=== PATIENT | female | born 1970 | race Caucasian/White ===

== ENCOUNTER → 2019-04-11 15:14 | Outpatient (CLI) | payer OTHER, SELFPAY ==
--- NOTE | 2019-04-11 | DI.CT.S_ITS ---
PROCEDURE: CT SINUS SCREEN WO CON INDICATIONS: other chronic sinusitis TECHNIQUE: Noncontrast 3.0 mm axial images acquired from the frontal sinuses to the mid-sella, with coronal and sagittal reformats. For radiation dose reduction, the following was used: automated exposure control, adjustment of mA and/or kV according to patient size. COMPARISON: None. FINDINGS: Image quality: Excellent. Sinuses: Post surgical changes are noted. Mild left and minimal right maxillary. Mild scattered ethmoid mucosal thickening. Minimal sphenoid and frontal sinus mucosal thickening. Miscellaneous: Visualized intra-orbital contents are normal. No mabel bullosa or paradoxical turbinate curvature. Mild leftward nasal septal deviation. IMPRESSION: Post surgical changes are noted. Mild scattered mucosal thickening, most notable in the maxillary sinuses. Dictated by: Maddison Chandler M.D. on 04/11/2019 at 15:13 Approved by: Maddison Chandler M.D. on 04/11/2019 at 15:21
== END ==
PROVIDERS: Visit Provider Otolaryngology
DX: J32.8 Other chronic sinusitis (principal)
CPT/HCPCS: 70486

== ENCOUNTER → 2020-05-13 16:38 | Outpatient (CLI) | payer OTHER, SELFPAY ==
[2020-05-13 17:11] LABS: Add Manual Diff / Slide Review NO; Basophils Absolute Auto 0 /uL (0-100); Basophils Percent Auto 0.4 % (0-2); Eosinophils Absolute Auto 200 /uL (0-450); Eosinophils Percent Auto 3.2 % (2-4); Hematocrit 36.9 % (36-46); Hemoglobin 12.2 g/dL (12.0-16.0); Lymphocytes Absolute Auto 1000 /uL (1100-4500); Lymphocytes Percent Auto 15.8 % (25-40); Mean Corpuscular HGB Conc 33.1 % (30-36); Mean Corpuscular Hemoglobin 30.1 PG (26-34); Monocytes Absolute Auto 400 /uL (0-900); Monocytes Percent Auto 6.4 % (3-14); Neutrophils Absolute Auto 4800 /uL (1500-7000); Neutrophils Percent Auto 74.2 % (50-75); Platelet Count 236 X10^3/uL (150-400); Red Blood Cell Count 4.05 X10^6/uL (4.0-5.2); Red Cell Distribution Width 14.5 % (11.6-14.8); White Blood Cell Count 6.4 X10^3/uL (4.5-11.0)
[2020-05-13 17:26] LABS: Erythrocyte Sedimentation Rate 9 MM/HR (0-20)
[2020-05-13 17:28] LABS: Prothrombin Time 11.9 SECONDS (10.1-12.7)
[2020-05-13 17:37] LABS: BUN Creatinine Ratio 28.1 (6-22); Blood Urea Nitrogen 18 mg/dL (7-17); Calcium 8.5 mg/dL (8.4-10.2); Carbon Dioxide 29 mmol/L (22-32); Chloride 105 mmol/L (98-107); Estimated Glomerular Filt Rate > 60.0 mL/min (>60); Glucose 96 mg/dL (70-100); HEMOLYSIS < 15 (0-50); Potassium 3.9 mmol/L (3.4-5.1); Sodium 137 mmol/L (137-145)
[2020-05-13 17:46] LABS: C-Reactive Protein Quant < 0.5 mg/dL (<1.0)
== END ==
PROVIDERS: PCP Nurse Practitioner Family; Referring Provider Nurse Practitioner Family; Visit Provider Nurse Practitioner Family
DX: R23.3 Spontaneous ecchymoses (principal)
CPT/HCPCS: 36415; 80048; 85025; 85610; 85651; 86140

== ENCOUNTER 2020-09-02 14:15 | Outpatient (RCR) | payer OTHER, SELFPAY ==
--- NOTE | 2020-08-19 16:00 | PT.OIE ---
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, [place], [address] Email: SANDRA Fay Attending Provider Non-Staff Referring Provider Specialty: Medical Address: [address], [address], [place], [address] Email: Physical Therapy Initial Evaluation PT-OP-A Visit Information Start: 08/19/20 07:40 Freq: Status: Active Protocol: Document 08/19/20 13:30 AMB (Rec: 08/19/20 14:20 AMB [id number]) Out-Patient Physical Therapy Visit Information Visit Information Visit Type Initial Evaluation PT-OP-B Current Condition Start: 08/19/20 07:40 Freq: Status: Active Protocol: Document 08/19/20 13:35 AMB (Rec: 08/19/20 14:06 AMB [id number]) Current Condition History of Current Condition Onset Date 2 years ago Current Complaints Radicular sx (R) History of Current Condition Low back pain for the past 2 years, sitting increases pain. Known disc herniation. Trying to avoid surgery. Sleeping flat on back. Gardening increases pain. Deep lunge, hamstring stretches help. Sx worst in R glutes and lateral calf. Driving is not painful, but doesn't drive a lot. Works from home currently and has a standing desk. Treatment Goals Patient/Caregiver Goals Be able to sit/ gardening without so much pain. Get some different exercises to help. Prior Functional Status Baseline Function- ADL's Independent Baseline Function- Mobility Independent Personal Factors Other Personal Factors That May Effect known herniated disc Therapy/Recovery PT-OP-C Subjective Start: 08/19/20 07:40 Freq: Status: Active Protocol: Document 08/19/20 13:30 AMB (Rec: 08/20/20 15:27 AMB [email or web address]) Patient Questionnaires Lower Extremity Functional Scale LEFS Score 72 LEFS Impairment 1 to 19% Impaired (Score 63-79 ) Oswestry Low Back Index Oswestry Score 14 Oswestry Impairment 1 to 19% Impaired (Score 1-19) OP-PT Pain Assessment Comments Pain Comments 3-4/10 pain at R gluteals, 3/ 10 at lateral leg PT-OP-F Manual Assessment Start: 08/19/20 07:40 Freq: Status: Active Protocol: Document 08/19/20 13:30 AMB (Rec: 08/20/20 15:27 AMB [email or web address]) Manual Assessments Other Manual Assessments Other Manual Assessments Tenderness at R glute med, tenderness with PAs at L4L5 L5S1 PT-OP-J Posture/Palpation/Skin Start: 08/19/20 07:40 Freq: Status: Active Protocol: Document 08/19/20 13:30 AMB (Rec: 08/20/20 15:27 AMB [email or web address]) Posture Evaluation Comments Posture Comments Flat lumbar spine, L ASIS high , LLE appears long in supine, prefers posterior pelvic tilt in sitting PT-OP-K Range of Motion Start: 08/19/20 07:40 Freq: Status: Active Protocol: Document 08/19/20 13:30 AMB (Rec: 08/20/20 15:27 AMB [email or web address]) Lumbar Spine Range of Motion Lumbar Spine Active Degrees Comments all WNL PT-OP-L Special Tests Start: 08/19/20 07:40 Freq: Status: Active Protocol: Document 08/19/20 13:30 AMB (Rec: 08/20/20 15:27 AMB [email or web address]) Special Tests Neural Special Tests- Lower Body Sciatic Nerve Tension Test Results - PT-OP-M Strength Start: 08/19/20 07:40 Freq: Status: Active Protocol: Document 08/19/20 13:30 AMB (Rec: 08/20/20 15:27 AMB [email or web address]) Hip Strength Hip Manual Muscle Testing Right Flexion (L2) 5 Normal Extension (S1) 4+ Good+ Abduction 5 Normal Left Flexion (L2) 5 Normal Extension (S1) 4+ Good+ Abduction 5 Normal Knee Strength Knee Manual Muscle Testing Right Flexion (S2) 4+ Good+ Extension (L3) 5 Normal Left Flexion (S2) 5 Normal Extension (L3) 5 Normal Ankle/Foot Strength Ankle and Foot Manual Muscle Testing Right Dorsiflexion (L4) 5 Normal Plantarflexion (S1) 5 Normal Left Dorsiflexion (L4) 5 Normal Plantarflexion (S1) 5 Normal PT-OP-T Assessment and Plan Start: 08/19/20 07:40 Freq: Status: Active Protocol: Document 08/19/20 13:30 AMB (Rec: 08/20/20 15:59 AMB [email or web address]) Physical Therapy Assessment Rehab Potential Rehabilitation Potential Good Evaluation Complexity Number of Personal Factors/Comorbidities 0 Number of Body Systems Impaired 3 Clinical Presentation at Evaluation Stable Impairments Impairments Activity Tolerance,Functional Activities,Pain Goals Three Impairment Pain Short Term Goal (STG) Saba will garden with 3/10 pain or less. STG Duration 4 weeks Two Impairment HEP Short Term Goal (STG) Saba will be indepedent and consistent with a HEP for her core and hip stabilization and stretching. STG Duration 4 weeks One Impairment Sitting Short Term Goal (STG) Saba will sit for dinner for 20 minutes with 3/10 pain or less. 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 LTG Duration 8 weeks Assessment Summary Assessment Saba attends physical therapy with known lumbar disc herniation, but possible hip dysfunction as well. Her biggest complaint is sitting, the pain can last an hour after she has been sitting and is painful while she is sitting in R gluteals and R lateral calf. Squeezing type pain. Deep hip flexor and hamstring stretching have been helpful. Pt was tight in hip flexor and did have pelvic postural changes. Would likely benefit from physical therapy to treat hip/lumbar/ pelvic dysfunction with focus on increasing tolerance in seated. Physical Therapy Plan Frequency and Duration Frequency of Treatment 2x/Week Duration of Treatment 8 weeks Plan of Care Start Date 08/19/20 Plan of Care End Date 10/14/20 Therapeutic Interventions Therapeutic Interventions Home Exercise Program,Manual Therapy,Neuromuscular Re- education,Self-Care/Home Management,Soft Tissue Mobilization,Therapeutic Activities,Therapeutic Exercises Modalities Cold Pack/Ice Massage,Electric Stimulation,Hot Packs, Traction- Mechanical Next Visit Focus/Plan Next Note Type Treatment Note Next Visit Plan Begin instruction in HEP: pelvic alignment, hip flexor stretching, seated posture
--- NOTE | 2020-08-19 16:00 | PT.OPPOC ---
Physical, Occupational & Speech Therapy At [facility] Current Diagnoses Pain in right hip (08/19/20) Spinal stenosis, lumbar region without neurogenic claudication (08/19/20) Radiculopathy, lumbar region (08/19/20) Visit Care Team Role Provider Type SANDRA Boyce Family Provider [employer] Supply Primary Care Provider Specialty: Family Practice Address: [address] [place], [address] Email: SANDRA Fay Attending Provider Non-Staff Referring Provider Specialty: Medical Address: [address], [place] [address], [place], [address] Email: Plan Of Care PT-OP-T Assessment and Plan Start: 08/19/20 07:40 Freq: Status: Active Protocol: Document 08/19/20 13:30 AMB (Rec: 08/20/20 15:59 AMB [email or web address]) Physical Therapy Assessment Rehab Potential Rehabilitation Potential Good Evaluation Complexity Number of Personal Factors/Comorbidities 0 Number of Body Systems Impaired 3 Clinical Presentation at Evaluation Stable Impairments Impairments Activity Tolerance,Functional Activities,Pain Goals Three Impairment Pain Short Term Goal (STG) Saba will garden with 3/10 pain or less. STG Duration 4 weeks Two Impairment HEP Short Term Goal (STG) Saba will be indepedent and consistent with a HEP for her core and hip stabilization and stretching. STG Duration 4 weeks One Impairment Sitting Short Term Goal (STG) Saba will sit for dinner for 20 minutes with 3/10 pain or less. 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 LTG Duration 8 weeks Assessment Summary Assessment Saba attends physical therapy with known lumbar disc herniation, but possible hip dysfunction as well. Her biggest complaint is sitting, the pain can last an hour after she has been sitting and is painful while she is sitting in R gluteals and R lateral calf. Squeezing type pain. Deep hip flexor and hamstring stretching have been helpful. Pt was tight in hip flexor and did have pelvic postural changes. Would likely benefit from physical therapy to treat hip/lumbar/ pelvic dysfunction with focus on increasing tolerance in seated. Physical Therapy Plan Frequency and Duration Frequency of Treatment 2x/Week Duration of Treatment 8 weeks Plan of Care Start Date 08/19/20 Plan of Care End Date 10/14/20 Therapeutic Interventions Therapeutic Interventions Home Exercise Program,Manual Therapy,Neuromuscular Re- education,Self-Care/Home Management,Soft Tissue Mobilization,Therapeutic Activities,Therapeutic Exercises Modalities Cold Pack/Ice Massage,Electric Stimulation,Hot Packs, Traction- Mechanical Next Visit Focus/Plan Next Note Type Treatment Note Next Visit Plan Begin instruction in HEP: pelvic alignment, hip flexor stretching, seated posture Plan of Care Dates Plan of Care Start Date 08/19/20 Plan of Care End Date 10/14/20 Electronically Signed by: Sara Alegre, PT 08/20/20 1600 Please Sign and Return: I have reviewed this Plan of Care and certify that the skilled therapy services above are required to meet the patient?s needs. Physician Signature Date Printed Name and Credentials Clinical Instructor Signature Printed Name and Credentials
--- NOTE | 2020-08-22 16:00 | PT.OTN ---
Current Diagnoses Pain in right hip (08/22/20) Spinal stenosis, lumbar region without neurogenic claudication (08/22/20) Radiculopathy, lumbar region (08/22/20) Physical Therapy Treatment Note PT-OP-A Visit Information Start: 08/19/20 07:40 Freq: Status: Active Protocol: Document 08/22/20 07:30 AMB (Rec: 08/22/20 15:59 AMB [email or web address]) Out-Patient Physical Therapy Visit Information Visit Information Visit Type Treatment Note Visit Start Time 07:30 Visit Stop Time 08:15 Total Visit Minutes 45 Visit Number 2 PT-OP-B Current Condition Start: 08/19/20 07:40 Freq: Status: Active Protocol: Document 08/19/20 13:35 AMB (Rec: 08/19/20 14:06 AMB [id number]) Current Condition History of Current Condition Onset Date 2 years ago Current Complaints Radicular sx (R) History of Current Condition Low back pain for the past 2 years, sitting increases pain. Known disc herniation. Trying to avoid surgery. Sleeping flat on back. Gardening increases pain. Deep lunge, hamstring stretches help. Sx worst in R glutes and lateral calf. Driving is not painful, but doesn't drive a lot. Works from home currently and has a standing desk. Treatment Goals Patient/Caregiver Goals Be able to sit/ gardening without so much pain. Get some different exercises to help. Prior Functional Status Baseline Function- ADL's Independent Baseline Function- Mobility Independent Personal Factors Other Personal Factors That May Effect known herniated disc Therapy/Recovery PT-OP-C Subjective Start: 08/19/20 07:40 Freq: Status: Active Protocol: Document 08/22/20 07:30 AMB (Rec: 08/22/20 16:00 AMB [email or web address]) OP-PT Subjective Patient Comments Patient Comments Pt did not have increased pain after eval PT-OP-F Manual Assessment Start: 08/19/20 07:40 Freq: Status: Active Protocol: Document 08/19/20 13:30 AMB (Rec: 08/20/20 15:27 AMB [email or web address]) Manual Assessments Other Manual Assessments Other Manual Assessments Tenderness at R glute med, tenderness with PAs at L4L5 L5S1 PT-OP-J Posture/Palpation/Skin Start: 08/19/20 07:40 Freq: Status: Active Protocol: Document 08/19/20 13:30 AMB (Rec: 08/20/20 15:27 AMB [email or web address]) Posture Evaluation Comments Posture Comments Flat lumbar spine, L ASIS high , LLE appears long in supine, prefers posterior pelvic tilt in sitting PT-OP-K Range of Motion Start: 08/19/20 07:40 Freq: Status: Active Protocol: Document 08/19/20 13:30 AMB (Rec: 08/20/20 15:27 AMB [email or web address]) Lumbar Spine Range of Motion Lumbar Spine Active Degrees Comments all WNL PT-OP-L Special Tests Start: 08/19/20 07:40 Freq: Status: Active Protocol: Document 08/19/20 13:30 AMB (Rec: 08/20/20 15:27 AMB [email or web address]) Special Tests Neural Special Tests- Lower Body Sciatic Nerve Tension Test Results - PT-OP-M Strength Start: 08/19/20 07:40 Freq: Status: Active Protocol: Document 08/19/20 13:30 AMB (Rec: 08/20/20 15:27 AMB [email or web address]) Hip Strength Hip Manual Muscle Testing Right Flexion (L2) 5 Normal Extension (S1) 4+ Good+ Abduction 5 Normal Left Flexion (L2) 5 Normal Extension (S1) 4+ Good+ Abduction 5 Normal Knee Strength Knee Manual Muscle Testing Right Flexion (S2) 4+ Good+ Extension (L3) 5 Normal Left Flexion (S2) 5 Normal Extension (L3) 5 Normal Ankle/Foot Strength Ankle and Foot Manual Muscle Testing Right Dorsiflexion (L4) 5 Normal Plantarflexion (S1) 5 Normal Left Dorsiflexion (L4) 5 Normal Plantarflexion (S1) 5 Normal PT-OP-Q Treatments Start: 08/19/20 07:40 Freq: Status: Active Protocol: Document 08/22/20 07:30 AMB (Rec: 08/22/20 15:59 AMB [email or web address]) Gym Equipment Shuttle Recovery Bilateral Squats Resistance 50 Shuttle Recovery Platform Stable Reps/Time warm up 5 min Therapeutic Exercises Supine Exercises 2 Supine Exercise Name hip flexor stretch Reps/Minutes 30x2 1 Supine Exercise Name supine hip ER Resistance #2 t band Sidelying Exercises 1 Sidelying Exercise Name clamshell Comments painful Other Exercises 1 Other Exercise Name quadruped hip ER Comments painful Manual Therapy Treatment Soft Tissue Mobilization 1 Body Location glut med (R) Mobilization Type Myofascial Release,Sustained Pressure Intensity/Depth Moderate Body Position Sidelying Manual Techniques 1 Type long axis distraction then MET for long L LE Body Position Hooklying PT-OP-T Assessment and Plan Start: 08/19/20 07:40 Freq: Status: Active Protocol: Document 08/22/20 07:30 AMB (Rec: 08/22/20 15:59 AMB [email or web address]) Physical Therapy Assessment Assessment Summary Assessment Saba had increased sx with light myofascial release to the R glute med. Pain with clamshells and fire hydrant, but no pain with supine hip ER . Weakness/pain into hip ER. Physical Therapy Plan Next Visit Focus/Plan Next Note Type Treatment Note Next Visit Plan Begin instruction in HEP: pelvic alignment, hip flexor stretching, seated posture
--- NOTE | 2020-08-26 15:57 | PT.OTN ---
Current Diagnoses Pain in right hip (08/26/20) Spinal stenosis, lumbar region without neurogenic claudication (08/26/20) Radiculopathy, lumbar region (08/26/20) Physical Therapy Treatment Note PT-OP-A Visit Information Start: 08/19/20 07:40 Freq: Status: Active Protocol: Document 08/26/20 12:45 AMB (Rec: 08/27/20 15:57 AMB [email or web address]) Out-Patient Physical Therapy Visit Information Visit Information Visit Type Treatment Note Visit Start Time 12:45 Visit Stop Time 13:30 Total Visit Minutes 45 Visit Number 3 PT-OP-B Current Condition Start: 08/19/20 07:40 Freq: Status: Active Protocol: Document 08/19/20 13:35 AMB (Rec: 08/19/20 14:06 AMB [id number]) Current Condition History of Current Condition Onset Date 2 years ago Current Complaints Radicular sx (R) History of Current Condition Low back pain for the past 2 years, sitting increases pain. Known disc herniation. Trying to avoid surgery. Sleeping flat on back. Gardening increases pain. Deep lunge, hamstring stretches help. Sx worst in R glutes and lateral calf. Driving is not painful, but doesn't drive a lot. Works from home currently and has a standing desk. Treatment Goals Patient/Caregiver Goals Be able to sit/ gardening without so much pain. Get some different exercises to help. Prior Functional Status Baseline Function- ADL's Independent Baseline Function- Mobility Independent Personal Factors Other Personal Factors That May Effect known herniated disc Therapy/Recovery PT-OP-C Subjective Start: 08/19/20 07:40 Freq: Status: Active Protocol: Document 08/26/20 12:45 AMB (Rec: 08/27/20 15:57 AMB [email or web address]) OP-PT Subjective Patient Comments Patient Comments Pt feels about the same. Did ok doing yardwork which she was surprised it went so well. PT-OP-F Manual Assessment Start: 08/19/20 07:40 Freq: Status: Active Protocol: Document 08/19/20 13:30 AMB (Rec: 08/20/20 15:27 AMB [email or web address]) Manual Assessments Other Manual Assessments Other Manual Assessments Tenderness at R glute med, tenderness with PAs at L4L5 L5S1 PT-OP-J Posture/Palpation/Skin Start: 08/19/20 07:40 Freq: Status: Active Protocol: Document 08/19/20 13:30 AMB (Rec: 08/20/20 15:27 AMB [email or web address]) Posture Evaluation Comments Posture Comments Flat lumbar spine, L ASIS high , LLE appears long in supine, prefers posterior pelvic tilt in sitting PT-OP-K Range of Motion Start: 08/19/20 07:40 Freq: Status: Active Protocol: Document 08/19/20 13:30 AMB (Rec: 08/20/20 15:27 AMB [email or web address]) Lumbar Spine Range of Motion Lumbar Spine Active Degrees Comments all WNL PT-OP-L Special Tests Start: 08/19/20 07:40 Freq: Status: Active Protocol: Document 08/19/20 13:30 AMB (Rec: 08/20/20 15:27 AMB [email or web address]) Special Tests Neural Special Tests- Lower Body Sciatic Nerve Tension Test Results - PT-OP-M Strength Start: 08/19/20 07:40 Freq: Status: Active Protocol: Document 08/19/20 13:30 AMB (Rec: 08/20/20 15:27 AMB [email or web address]) Hip Strength Hip Manual Muscle Testing Right Flexion (L2) 5 Normal Extension (S1) 4+ Good+ Abduction 5 Normal Left Flexion (L2) 5 Normal Extension (S1) 4+ Good+ Abduction 5 Normal Knee Strength Knee Manual Muscle Testing Right Flexion (S2) 4+ Good+ Extension (L3) 5 Normal Left Flexion (S2) 5 Normal Extension (L3) 5 Normal Ankle/Foot Strength Ankle and Foot Manual Muscle Testing Right Dorsiflexion (L4) 5 Normal Plantarflexion (S1) 5 Normal Left Dorsiflexion (L4) 5 Normal Plantarflexion (S1) 5 Normal PT-OP-Q Treatments Start: 08/19/20 07:40 Freq: Status: Active Protocol: Document 08/26/20 12:45 AMB (Rec: 08/27/20 15:57 AMB [email or web address]) Therapeutic Exercises Supine Exercises 2 Supine Exercise Name hip flexor stretch Reps/Minutes 30x2 1 Supine Exercise Name supine hip ER Resistance #2 t band Reps/Minutes 2x10 Comments easy Prone Exercises 1 Prone Exercise Name prone press up Reps/Minutes 10 Comments forearms Sidelying Exercises 2 Sidelying Exercise Name hip abd- SLR Comments painful 1 Sidelying Exercise Name clamshell Side right Reps/Minutes 10 Comments less painful but still makes hip burn Sitting Exercises 1 Sitting Exercise Name australian ball 65cm Comments pelvic circles, march with TA Standing Exercises 1 Standing Exercise Name hip abd #2 t band Reps/Minutes 10 Manual Therapy Treatment Manual Techniques 1 Type long axis distraction then MET for long L LE Body Position Hooklying PT-OP-T Assessment and Plan Start: 08/19/20 07:40 Freq: Status: Active Protocol: Document 08/26/20 12:45 AMB (Rec: 08/27/20 15:57 AMB [email or web address]) Physical Therapy Assessment Assessment Summary Assessment Saba had less pelvic asymmetry today, tolerated australian ball exercises well. Will continue to work on seated tolerance. Clamshells and hip abd increase sx significantly. Physical Therapy Plan Next Visit Focus/Plan Next Note Type Treatment Note Next Visit Plan Continue with seated exercises on australian ball as tolerated, follow up on HEP of standing t band hip abd.
--- NOTE | 2020-08-29 16:21 | PT.OTN ---
Current Diagnoses Pain in right hip (08/29/20) Spinal stenosis, lumbar region without neurogenic claudication (08/29/20) Radiculopathy, lumbar region (08/29/20) Physical Therapy Treatment Note PT-OP-A Visit Information Start: 08/19/20 07:40 Freq: Status: Active Protocol: Document 08/29/20 07:30 AMB (Rec: 08/29/20 11:01 AMB [email or web address]) Out-Patient Physical Therapy Visit Information Visit Information Visit Type Treatment Note Visit Start Time 07:30 Visit Stop Time 08:15 Total Visit Minutes 45 Visit Number 4 PT-OP-B Current Condition Start: 08/19/20 07:40 Freq: Status: Active Protocol: Document 08/19/20 13:35 AMB (Rec: 08/19/20 14:06 AMB [id number]) Current Condition History of Current Condition Onset Date 2 years ago Current Complaints Radicular sx (R) History of Current Condition Low back pain for the past 2 years, sitting increases pain. Known disc herniation. Trying to avoid surgery. Sleeping flat on back. Gardening increases pain. Deep lunge, hamstring stretches help. Sx worst in R glutes and lateral calf. Driving is not painful, but doesn't drive a lot. Works from home currently and has a standing desk. Treatment Goals Patient/Caregiver Goals Be able to sit/ gardening without so much pain. Get some different exercises to help. Prior Functional Status Baseline Function- ADL's Independent Baseline Function- Mobility Independent Personal Factors Other Personal Factors That May Effect known herniated disc Therapy/Recovery PT-OP-C Subjective Start: 08/19/20 07:40 Freq: Status: Active Protocol: Document 08/29/20 07:30 AMB (Rec: 08/29/20 11:01 AMB [email or web address]) OP-PT Subjective Patient Comments Patient Comments Pt had a more painful day, did wear wedges to work, wondering if that increased pain. PT-OP-F Manual Assessment Start: 08/19/20 07:40 Freq: Status: Active Protocol: Document 08/19/20 13:30 AMB (Rec: 08/20/20 15:27 AMB [email or web address]) Manual Assessments Other Manual Assessments Other Manual Assessments Tenderness at R glute med, tenderness with PAs at L4L5 L5S1 PT-OP-J Posture/Palpation/Skin Start: 08/19/20 07:40 Freq: Status: Active Protocol: Document 08/19/20 13:30 AMB (Rec: 08/20/20 15:27 AMB [email or web address]) Posture Evaluation Comments Posture Comments Flat lumbar spine, L ASIS high , LLE appears long in supine, prefers posterior pelvic tilt in sitting PT-OP-K Range of Motion Start: 08/19/20 07:40 Freq: Status: Active Protocol: Document 08/19/20 13:30 AMB (Rec: 08/20/20 15:27 AMB [email or web address]) Lumbar Spine Range of Motion Lumbar Spine Active Degrees Comments all WNL PT-OP-L Special Tests Start: 08/19/20 07:40 Freq: Status: Active Protocol: Document 08/19/20 13:30 AMB (Rec: 08/20/20 15:27 AMB [email or web address]) Special Tests Neural Special Tests- Lower Body Sciatic Nerve Tension Test Results - PT-OP-M Strength Start: 08/19/20 07:40 Freq: Status: Active Protocol: Document 08/19/20 13:30 AMB (Rec: 08/20/20 15:27 AMB [email or web address]) Hip Strength Hip Manual Muscle Testing Right Flexion (L2) 5 Normal Extension (S1) 4+ Good+ Abduction 5 Normal Left Flexion (L2) 5 Normal Extension (S1) 4+ Good+ Abduction 5 Normal Knee Strength Knee Manual Muscle Testing Right Flexion (S2) 4+ Good+ Extension (L3) 5 Normal Left Flexion (S2) 5 Normal Extension (L3) 5 Normal Ankle/Foot Strength Ankle and Foot Manual Muscle Testing Right Dorsiflexion (L4) 5 Normal Plantarflexion (S1) 5 Normal Left Dorsiflexion (L4) 5 Normal Plantarflexion (S1) 5 Normal PT-OP-Q Treatments Start: 08/19/20 07:40 Freq: Status: Active Protocol: Document 08/29/20 16:19 AMB (Rec: 08/29/20 16:21 AMB [email or web address]) Therapeutic Exercises Supine Exercises 3 Supine Exercise Name hamstring contract relax Reps/Minutes 10 2 Supine Exercise Name hip flexor stretch Reps/Minutes 30x2 1 Supine Exercise Name supine hip ER Resistance #2 t band Reps/Minutes 2x10 Comments easy Standing Exercises 1 Standing Exercise Name hip abd #2 t band Reps/Minutes 10 Manual Therapy Treatment Manual Techniques 1 Type long axis distraction then MET for long L LE Body Position Hooklying PT-OP-T Assessment and Plan Start: 08/19/20 07:40 Freq: Status: Active Protocol: Document 08/29/20 16:19 AMB (Rec: 08/29/20 16:21 AMB [email or web address]) Physical Therapy Assessment Assessment Summary Assessment Pt's L LE measured longer in supine by .5cm, so gave small cork insert for R LE. Hip strengthening continues to exacerbate her pain. Physical Therapy Plan Next Visit Focus/Plan Next Note Type Treatment Note Next Visit Plan Discuss continued PT vs returning to surgeon
--- NOTE | 2020-09-02 16:00 | PT.OTN ---
Current Diagnoses Pain in right hip (09/02/20) Spinal stenosis, lumbar region without neurogenic claudication (09/02/20) Radiculopathy, lumbar region (09/02/20) Physical Therapy Treatment Note PT-OP-A Visit Information Start: 08/19/20 07:40 Freq: Status: Active Protocol: Document 09/02/20 14:15 AMB (Rec: 09/02/20 16:00 AMB [email or web address]) Out-Patient Physical Therapy Visit Information Visit Information Visit Type Treatment Note Visit Start Time 14:15 Visit Stop Time 15:00 Total Visit Minutes 45 Visit Number 5 PT-OP-B Current Condition Start: 08/19/20 07:40 Freq: Status: Active Protocol: Document 08/19/20 13:35 AMB (Rec: 08/19/20 14:06 AMB [id number]) Current Condition History of Current Condition Onset Date 2 years ago Current Complaints Radicular sx (R) History of Current Condition Low back pain for the past 2 years, sitting increases pain. Known disc herniation. Trying to avoid surgery. Sleeping flat on back. Gardening increases pain. Deep lunge, hamstring stretches help. Sx worst in R glutes and lateral calf. Driving is not painful, but doesn't drive a lot. Works from home currently and has a standing desk. Treatment Goals Patient/Caregiver Goals Be able to sit/ gardening without so much pain. Get some different exercises to help. Prior Functional Status Baseline Function- ADL's Independent Baseline Function- Mobility Independent Personal Factors Other Personal Factors That May Effect known herniated disc Therapy/Recovery PT-OP-C Subjective Start: 08/19/20 07:40 Freq: Status: Active Protocol: Document 09/02/20 14:15 AMB (Rec: 09/02/20 16:00 AMB [email or web address]) OP-PT Subjective Patient Comments Patient Comments Pt is having a good day today, so not sure if it's from the heel lift or just because her pain is variable. PT-OP-F Manual Assessment Start: 08/19/20 07:40 Freq: Status: Active Protocol: Document 08/19/20 13:30 AMB (Rec: 08/20/20 15:27 AMB [email or web address]) Manual Assessments Other Manual Assessments Other Manual Assessments Tenderness at R glute med, tenderness with PAs at L4L5 L5S1 PT-OP-J Posture/Palpation/Skin Start: 08/19/20 07:40 Freq: Status: Active Protocol: Document 08/19/20 13:30 AMB (Rec: 08/20/20 15:27 AMB [email or web address]) Posture Evaluation Comments Posture Comments Flat lumbar spine, L ASIS high , LLE appears long in supine, prefers posterior pelvic tilt in sitting PT-OP-K Range of Motion Start: 08/19/20 07:40 Freq: Status: Active Protocol: Document 08/19/20 13:30 AMB (Rec: 08/20/20 15:27 AMB [email or web address]) Lumbar Spine Range of Motion Lumbar Spine Active Degrees Comments all WNL PT-OP-L Special Tests Start: 08/19/20 07:40 Freq: Status: Active Protocol: Document 08/19/20 13:30 AMB (Rec: 08/20/20 15:27 AMB [email or web address]) Special Tests Neural Special Tests- Lower Body Sciatic Nerve Tension Test Results - PT-OP-M Strength Start: 08/19/20 07:40 Freq: Status: Active Protocol: Document 08/19/20 13:30 AMB (Rec: 08/20/20 15:27 AMB [email or web address]) Hip Strength Hip Manual Muscle Testing Right Flexion (L2) 5 Normal Extension (S1) 4+ Good+ Abduction 5 Normal Left Flexion (L2) 5 Normal Extension (S1) 4+ Good+ Abduction 5 Normal Knee Strength Knee Manual Muscle Testing Right Flexion (S2) 4+ Good+ Extension (L3) 5 Normal Left Flexion (S2) 5 Normal Extension (L3) 5 Normal Ankle/Foot Strength Ankle and Foot Manual Muscle Testing Right Dorsiflexion (L4) 5 Normal Plantarflexion (S1) 5 Normal Left Dorsiflexion (L4) 5 Normal Plantarflexion (S1) 5 Normal PT-OP-Q Treatments Start: 08/19/20 07:40 Freq: Status: Active Protocol: Document 09/02/20 14:15 AMB (Rec: 09/02/20 16:00 AMB [email or web address]) Therapeutic Exercises Supine Exercises 3 Supine Exercise Name hamstring contract relax Reps/Minutes 10 2 Supine Exercise Name hip flexor stretch Reps/Minutes 30x2 1 Supine Exercise Name supine hip ER Resistance #2 t band Reps/Minutes 2x10 Comments easy Sidelying Exercises 2 Sidelying Exercise Name hip abd- SLR Comments painful 1 Sidelying Exercise Name clamshell Side right Reps/Minutes 10 Standing Exercises 2 Standing Exercise Name squat form Comments posterior pelvic tilt for more lengthening Manual Therapy Treatment Soft Tissue Mobilization 1 Body Location glut med (R) Mobilization Type Myofascial Release,Sustained Pressure Intensity/Depth Moderate Body Position Sidelying Comments added in iliopsoas release Manual Techniques 1 Type long axis distraction then MET for long L LE Body Position Hooklying PT-OP-T Assessment and Plan Start: 08/19/20 07:40 Freq: Status: Active Protocol: Document 09/02/20 14:15 AMB (Rec: 09/02/20 16:00 AMB [email or web address]) Physical Therapy Assessment Assessment Summary Assessment Gave more cork today and pelvis appears level in standing afterward. Good tolerance to stretching today, clamshell increases pain but less so. Physical Therapy Plan Next Visit Focus/Plan Next Visit Plan REassess after 1.5 weeks to check if PT is making positive impact
--- NOTE | 2020-11-28 15:14 | PT.OPDS ---
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, [place], [address] Email: SANDRA Fay Attending Provider Non-Staff Referring Provider Specialty: Medical Address: [address], [place], [address] Email: Visit Number Visit Number 5 Discharge Summary PT-OP-B Current Condition Start: 08/19/20 07:40 Freq: Status: Active Protocol: Document 08/19/20 13:35 AMB (Rec: 08/19/20 14:06 AMB [id number]) Current Condition History of Current Condition Onset Date 2 years ago Current Complaints Radicular sx (R) History of Current Condition Low back pain for the past 2 years, sitting increases pain. Known disc herniation. Trying to avoid surgery. Sleeping flat on back. Gardening increases pain. Deep lunge, hamstring stretches help. Sx worst in R glutes and lateral calf. Driving is not painful, but doesn't drive a lot. Works from home currently and has a standing desk. Treatment Goals Patient/Caregiver Goals Be able to sit/ gardening without so much pain. Get some different exercises to help. Prior Functional Status Baseline Function- ADL's Independent Baseline Function- Mobility Independent Personal Factors Other Personal Factors That May Effect known herniated disc Therapy/Recovery PT-OP-C Subjective Start: 08/19/20 07:40 Freq: Status: Active Protocol: Document 09/02/20 14:15 AMB (Rec: 09/02/20 16:00 AMB [email or web address]) OP-PT Subjective Patient Comments Patient Comments Pt is having a good day today, so not sure if it's from the heel lift or just because her pain is variable. PT-OP-F Manual Assessment Start: 08/19/20 07:40 Freq: Status: Active Protocol: Document 08/19/20 13:30 AMB (Rec: 08/20/20 15:27 AMB [email or web address]) Manual Assessments Other Manual Assessments Other Manual Assessments Tenderness at R glute med, tenderness with PAs at L4L5 L5S1 PT-OP-J Posture/Palpation/Skin Start: 08/19/20 07:40 Freq: Status: Active Protocol: Document 08/19/20 13:30 AMB (Rec: 08/20/20 15:27 AMB [email or web address]) Posture Evaluation Comments Posture Comments Flat lumbar spine, L ASIS high , LLE appears long in supine, prefers posterior pelvic tilt in sitting PT-OP-K Range of Motion Start: 08/19/20 07:40 Freq: Status: Active Protocol: Document 08/19/20 13:30 AMB (Rec: 08/20/20 15:27 AMB [email or web address]) Lumbar Spine Range of Motion Lumbar Spine Active Degrees Comments all WNL PT-OP-L Special Tests Start: 08/19/20 07:40 Freq: Status: Active Protocol: Document 08/19/20 13:30 AMB (Rec: 08/20/20 15:27 AMB [email or web address]) Special Tests Neural Special Tests- Lower Body Sciatic Nerve Tension Test Results - PT-OP-M Strength Start: 08/19/20 07:40 Freq: Status: Active Protocol: Document 08/19/20 13:30 AMB (Rec: 08/20/20 15:27 AMB [email or web address]) Hip Strength Hip Manual Muscle Testing Right Flexion (L2) 5 Normal Extension (S1) 4+ Good+ Abduction 5 Normal Left Flexion (L2) 5 Normal Extension (S1) 4+ Good+ Abduction 5 Normal Knee Strength Knee Manual Muscle Testing Right Flexion (S2) 4+ Good+ Extension (L3) 5 Normal Left Flexion (S2) 5 Normal Extension (L3) 5 Normal Ankle/Foot Strength Ankle and Foot Manual Muscle Testing Right Dorsiflexion (L4) 5 Normal Plantarflexion (S1) 5 Normal Left Dorsiflexion (L4) 5 Normal Plantarflexion (S1) 5 Normal PT-OP-T Assessment and Plan Start: 08/19/20 07:40 Freq: Status: Active Protocol: Document 11/28/20 15:13 AMB (Rec: 11/28/20 15:14 AMB [email or web address]) Physical Therapy Assessment Goals Three Impairment Pain Short Term Goal (STG) Saba will garden with 3/10 pain or less. STG Duration PARTIALLY MET Two Impairment HEP Short Term Goal (STG) Saba will be indepedent and consistent with a HEP for her core and hip stabilization and stretching. STG Duration PARTIALLY MET One Impairment Sitting Short Term Goal (STG) Saba will sit for dinner for 20 minutes with 3/10 pain or less. 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 LTG Duration NOT MET Physical Therapy Plan Discharge Physical Therapy Discharge Comments Pt has not been seen in 3 months. Pt had small improvement with PT but overall continuing to have significant pain with sitting. Pt canceled remaining appointments, therefore discharged at this time.
== END 2020-12-01 10:50 | disposition home or self-care (01) ==
LOC: PHYS 14:15
PROVIDERS: Family Provider Nurse Practitioner Family; PCP Nurse Practitioner Family; Referring Provider Nurse Practitioner; Visit Provider Nurse Practitioner
DX: M48.061 Spinal stenosis, lumbar region without neurogenic claudication (principal); M25.551 Pain in right hip; M54.16 Radiculopathy, lumbar region
CPT/HCPCS: 97110; 97140; 97161

== ENCOUNTER → 2021-05-20 10:16 | Outpatient (CLI) | payer OTHER, SELFPAY ==
[2021-05-20 13:35] LABS: COVID19 -Nasal RAPID Negative (Negative)
== END ==
PROVIDERS: Family Provider Nurse Practitioner Family; PCP Nurse Practitioner Family; Referring Provider Nurse Practitioner Family; Visit Provider Nurse Practitioner Family
DX: Z01.812 Encounter for preprocedural laboratory examination (principal); Z20.822 Contact with and (suspected) exposure to COVID-19
CPT/HCPCS: 87635

== ENCOUNTER 2021-05-22 13:51 | Day surgery (SDC) | payer OTHER, SELFPAY ==
--- NOTE | 2021-05-22 | PATH_ITS ---
[facility] Accession Number: [id number] . 01 Material submitted: . splenic flexure - SPLENIC FLEXURE POLYP 2CM . 02 Diagnosis: Splenic Flexure, Polyp 2 cm, Biopsy: Tubulovillous adenoma. No evidence of malignancy or high-grade dysplasia. [facility] 05/26/2021 1640 Local . 02 Electronically signed: . Lucinda Kaplan MD, Pathologist NPI- [id number] . 01 Gross description: . SPLENIC FLEXURE POLYP 2CM: Received in formalin are 2 fragment(s) of lockett, soft tissue measuring 0.1 x 0.1 x 0.1 cm to 0.3 x 0.3 x 0.2 cm submitted entirely in 1 cassette(s) /BELLA 05/25/2021 1851 Local . 02 Pathologist provided ICD-10: D12.3 . 02 CPT . 004047 Performed at: 01 [facility] [address] [facility], [place], [place] [id number] MD Rashi Medeiros MD Phone: [phone] Performed at: 02 [facility] [address] [place], [place] [id number] MD Lucinda Kaplan MD Phone: [phone]
--- NOTE | 2021-05-22 12:02 | PM.HP.1 ---
History of Present Illness History of Present Illness Date Patient Seen: 05/22/21 Chief complaint: SDC Narrative: 50 Years Old Female seen today for consideration of a screening colonoscopy. There have been no lower GI symptoms suggesting disease such as change in bowel habits, bleeding, abdominal pain or anemia. There's been no family history of colon cancer or colon polyps. Overall health issues have been stable, including no major cardiac events for at least 6 weeks. Past Medical History: Tinnitus Past Surgical History: Nasal Polyps Removal -1998 Nasal Polyp removal - 2006 Lymph Node Removal - 07/2000 Family History: Asthma - Child Social History: Marital Status: Children: 2 sons (Rajeev 1997, Blanche 2000) Occupation: [employer] Household Members: Spouse and sons Education: College 1 drink/week Patient History Medical History (Updated 05/22/21 @ 14:19 by Wilbert Ordonez RN) Lymph node disorder Multiple nasal polyps Meds Home Medications and Allergies Home Medications Medication Instructions Recorded Confirmed Type Zyrtec See Rx Instructions .ROUTE .COMPLEX 05/22/21 05/22/21 History Allergies Allergy/AdvReac Type Severity Reaction Status Date / Time No Known Drug Allergies Allergy Verified 05/21/21 15:12 Review of Systems Review of Systems Narrative: All remaining ROS were reviewed and negative except as addressed. Exam Narrative Exam Narrative: GENERAL: Alert and oriented, appearing stated age and in no acute distress. HEENT: Head normocephalic/atraumatic. Extraocular movements intact. LUNGS: Clear to ausculation bilaterally, no wheezes, rhonchi or rales. CV: Normal S1 and S2 with regular rate and rhythm, no audible murmurs, rubs or gallops. ABDOMEN: Soft, non-tender, non-distended, no organomegaly. Positive bowel sounds. EXTREMITIES: No clubbing, cyanosis, or edema. NEURO: Cranial nerves II through XII grossly intact, no focal deficits. PSYCH: Alert and oriented x 3. SKIN: No concerning lesions. Assessment & Plan Assessment & Plan narrative: 1. Screening for colon cancer Plan for colonoscopy. The nature and character of the procedure as well as anticipated results were discussed. The possibility of not completing the procedure was also discussed. Possible complications including aspiration pneumonia, bleeding, perforation and reaction to medications either for sedation or preparation and missed lesions were discussed. Questions were answered and proceeding to the colonoscopy was elected. Informed consent signed. I sincerely appreciate the referral allowing me to participate in this patient's care. Please contact me with any questions or concerns. Time Spent With Patient Critical Care time: I spent a total of [] minutes of critical care time on this patient's care today; this time is exclusive of procedural time.
--- NOTE | 2021-05-22 12:04 | PM.OP.COLON ---
Operative Date/Time/Diagnoses Date of procedure: 05/22/21 Procedure Notes SCOAP/Timeout: 3:19 p.m. Procedure in detail: ENDOSCOPIST: Emelyn London MD Sedation RN: Azul Granados RN Sedation start time: 3:20 p.m. Sedation end time: 4:02 p.m. PROCEDURE: Colonoscopy with targeted biopsy x2 INDICATIONS: 1. Screening for colon cancer MEDICATION: Levsin 0.125 mg sublingual, incremental doses of Versed and fentanyl until appropriate level sedation achieved. ASA CLASS: 1 CECAL WITHDRAWAL TIME: 21 minutes COMPLICATIONS: None. EXTENT OF PROCEDURE: Cecum. QUALITY OF PREP: Good with portions of liquid stool. PROCEDURE: Prior to insertion of the colonoscope, a digital rectal examination was accomplished with circumferential palpation of the distal rectal mucosa without significant findings being noted. The high-definition pediatric colonoscope was passed into the rectum in the usual fashion and advanced over to the cecum without difficulty. The ileocecal valve, appendiceal stoma, and medial wall all could be inspected and no abnormalities were seen. ASCENDING COLON: As the colonoscope was withdrawn, care was taken to expose and inspect the haustral folds and no abnormalities were seen. HEPATIC FLEXURE: Normal, no polyps, diverticula or other abnormalities. TRANSVERSE COLON: Normal, no polyps, diverticula or other abnormalities. DESCENDING COLON: At The splenic flexure there was a 2 cm polyp that was lifted with methylene blue, only partial lift was achieved and so polyp was not removed secondary to concern for perforation. Targeted biopsy taken x2. Otherwise, normal, no diverticula or other abnormalities. SIGMOID COLON: Normal, no polyps, diverticula or other abnormalities. RECTUM: Normal. J maneuver was produced. There was no significant perianal disease. The J maneuver was broken. The remainder of the rectum was inspected and there was no external hemorrhoid disease. The scope was withdrawn. IMPRESSION: 1. Splenic flexure polyp x1, 2 cm, non-lift sign with with methylene blue, left unresected, targeted biopsy taken x2 PLAN: 1. Follow-up in clinic status post pathology results. The possibility of a missed lesion including a malignancy has been discussed with the patient previously. Potential alarm symptoms have been discussed and should be reported immediately.
[2021-05-22 14:21] VITALS: BP 113/72; PULSE 77; RESP 16; TEMP 37; O2SAT 100; BMI 22.7
[2021-05-22] MEDS: HYOSCYAMINE 0.125 MG TABLET PO (14:46)
[2021-05-22] MEDS: LACTATED RINGERS 1,000 ML 84 ML IV (14:47)
[2021-05-22] MEDS: fentaNYL 250 MCG/5 ML INJ IV (15:38)
[2021-05-22] MEDS: MIDAZOLAM 5 MG/5 ML VIAL IV (15:50)
[2021-05-22] MEDS: METHYLENE BLUE 50 MG/10 ML VIAL INJ (16:00)
[2021-05-22 16:08] VITALS: BP 105/65; PULSE 77; RESP 20; TEMP 37.4; O2SAT 97
--- NOTE | 2021-05-22 16:10 | SUR.PHASEI ---
Received to PACU after colonoscopy with sedation. Report from KALIE Liang.
[2021-05-22 16:13] VITALS: BP 105/65; PULSE 81; RESP 20; O2SAT 97
[2021-05-22 16:18] VITALS: BP 106/64; PULSE 74; RESP 16; O2SAT 98
[2021-05-22 16:19] VITALS: BP 107/67; PULSE 78; RESP 12; O2SAT 98
[2021-05-22 16:35] VITALS: BP 103/69; PULSE 67; RESP 16; TEMP 36.6; O2SAT 95
== END 2021-05-22 16:40 | disposition home or self-care (01) ==
PROVIDERS: Family Provider Nurse Practitioner Family; PCP Family Medicine; Referring Provider Student in an Organized Health Care Education/Training Program; Visit Provider Student in an Organized Health Care Education/Training Program
PROC: 0DJD8ZZ Inspection of Lower Intestinal Tract, Via Natural or Artificial Opening Endoscopic (ICD-10-PCS; CPT 45378; principal; 2021-05-22 15:15)
DX: Z12.11 Encounter for screening for malignant neoplasm of colon (principal); D12.3 Benign neoplasm of transverse colon
CPT/HCPCS: 45380; 45381; 81025; J2250; J3010; Q9968

== ENCOUNTER → 2021-05-25 10:49 | Outpatient (CLI) | payer OTHER, SELFPAY ==
--- NOTE | 2021-05-25 | DI.MG.S_ITS ---
BILATERAL DIGITAL SCREENING MAMMOGRAM 3D/2D WITH CAD: 05/25/2021 CLINICAL: Routine screening. Comparison is made to exams dated: 03/09/2012 mammogram, 02/21/2012 mammogram, and 02/20/2012 mammogram - outside location. There are scattered fibroglandular elements in both breasts. Current study was also evaluated with a Computer Aided Detection (CAD) system. No significant masses, calcifications, or other findings are seen in either breast. There has been no significant interval change. IMPRESSION: NEGATIVE There is no mammographic evidence of malignancy. A 1 year screening mammogram is recommended. This exam was interpreted at Station ID: [id number]. NOTE: For mammograms, a report in lay terms will be sent to the patient. Approximately 15% of breast malignancies will not be visualized mammographically. In the management of a palpable breast mass, a negative mammogram must not discourage biopsy of a clinically suspicious lesion. Electronically Signed By: Denis Crump M.D., jr/sol:05/25/2021 11:11:53 letter sent: Normal Exam ACR BI-RADS Category 1: Negative [id number]
== END ==
PROVIDERS: Family Provider Nurse Practitioner Family; PCP Family Medicine; Referring Provider Family Medicine; Visit Provider Family Medicine
DX: Z12.31 Encounter for screening mammogram for malignant neoplasm of breast (principal)
CPT/HCPCS: 77063; 77067

== ENCOUNTER → 2021-07-27 10:18 | Outpatient (CLI) | payer OTHER, SELFPAY ==
[2021-07-27 15:26] LABS: COVID19 -Nasal RAPID Negative (Negative)
== END ==
PROVIDERS: Family Provider Nurse Practitioner Family; PCP Family Medicine; Visit Provider Nurse Practitioner Family
DX: Z20.822 Contact with and (suspected) exposure to COVID-19 (principal)
CPT/HCPCS: 87635; C9803

== ENCOUNTER 2021-07-29 06:56 | Day surgery (SDC) | payer OTHER, SELFPAY ==
[2021-07-29] VITALS (7 sets, daily range): BP systolic 95–110; BP diastolic 53–65; PULSE 67–81; RESP 14–16; TEMP 36.2–36.7; O2SAT 97–100; BMI 22.7
--- NOTE | 2021-07-29 | PATH_ITS ---
[facility] Accession Number: [id number] . 01 Material submitted: . colon - SPLENIC POLYP AT 50CM . 02 Diagnosis: Splenic, Polyp at 50 cm, Biopsy: Tubulovillous adenoma. No evidence of malignancy or high-grade dysplasia. V 08/03/2021 1045 Local . 02 Electronically signed: . Lucinda Kaplan MD, Pathologist NPI- [id number] . 01 Gross description: . SPLENIC POLYP AT 50CM: Received in formalin are multiple fragment(s) of lockett, soft tissue measuring 0.1 x 0.1 x 0.1 cm to 0.9 x 0.9 x 0.9 cm submitted entirely in 2 cassette(s) /BELLA 07/30/20212033 Local . 02 Pathologist provided ICD-10: D12.3 . 02 CPT . 223475 Specimen Comment: A courtesy copy of this report has been sent to [phone] Performed at: 01 [facility] [address] [facility], [place], [place] [id number] MD Rashi Medeiros MD Phone: [phone] Performed at: 02 [facility] [address] [place], [place] [id number] MD Lucinda Kaplan MD Phone: [phone]
[2021-07-29] MEDS: LACTATED RINGERS 1,000 ML 42 ML IV (07:45)
--- NOTE | 2021-07-29 08:32 | P.HP_ITS ---
History of Present Illness History of Present Illness Date Patient Seen: 07/29/21 Chief complaint: SDC Narrative: Large polyp at splenic flexure to be removed. Patient History Medical History Lymph node disorder Multiple nasal polyps Family & Social History Social History: household members spouse Tobacco & Substance use: Smoking Status Never smoker alcohol intake current alcohol intake frequency holiday/special occasion Substance Use Type does not use Meds Home Medications and Allergies Home Medications Medication Instructions Recorded Confirmed Type Zyrtec See Rx Instructions .ROUTE .COMPLEX 05/22/21 07/29/21 History Allergies Allergy/AdvReac Type Severity Reaction Status Date / Time No Known Drug Allergies Allergy Verified 05/21/21 15:12 Exam Vital Signs (past 8 hours): - 07/29/21 07:11 Temperature 97.2 F L Pulse Rate 78 Respiratory Rate 14 Blood Pressure 95/65 Pulse Oximetry 98 Oxygen Delivery Method Room Air Narrative Exam Narrative: Oropharynx free of lesions Chest clear to auscultation percussion Cardiac exam reveals no S3 or murmur Assessment & Plan Assessment & Plan narrative: History of large adenomatous colon polyp at the splenic flexure need for colonoscopic removal. Risks benefits alternatives have been explained including the slight increased risk of perforation. Delay of procedure filled would adversely impact outcomes with the patient. Time Spent With Patient Critical Care time: I spent a total of [] minutes of critical care time on this patient's care today ; this time is exclusive of procedural time.
--- NOTE | 2021-07-29 08:34 | P.OP.COLON_ITS ---
Operative Date/Time/Diagnoses Date of procedure: 07/29/21 Pre-op diagnosis: See indication and findings Procedure & Clinicians Study performed: Colonoscopy Indications: Large adenomatous colon polyp at splenic flexure Procedure Notes Procedure in detail: After informed consent was obtained the patient was placed in left lateral decubitus position. The video colonoscope was introduced the rectum slowly advanced mid transverse colon. On slow withdrawal mucosa was carefully examined and the large polyp seen at the splenic flexure The scope was removed. The patient tolerated procedure well. Blood loss none Complications none Sedation mac Findings 1. Large 3 cm primarily sessile polyp at the splenic flexure/70 cm. The base w as injected with spot to raise and tattoo for future identification. Subsequently using a large snare the bulk of the polyp was taken off in piecemeal form/EMR. All fragments were retrieved. The base was then treated with pulsed APC with good complete coverage. Follow-up colonoscopy in 6-12 months to evaluate area based on pathology of all of these fragments. Further recommendations to follow.
== END 2021-07-29 10:07 | disposition home or self-care (01) ==
PROVIDERS: Family Provider Nurse Practitioner Family; PCP Family Medicine; Referring Provider Internal Medicine Gastroenterology; Visit Provider Internal Medicine Gastroenterology
PROC: 0DJD8ZZ Inspection of Lower Intestinal Tract, Via Natural or Artificial Opening Endoscopic (ICD-10-PCS; CPT 45378; principal; 2021-07-29 08:30)
DX: D12.3 Benign neoplasm of transverse colon (principal); Z86.010 Personal history of colon polyps
CPT/HCPCS: 45390; J2704

== ENCOUNTER 2021-07-30 20:40 | Inpatient (IN) | payer OTHER, SELFPAY ==
[2021-07-30 20:47] VITALS: BP 119/78; PULSE 112; RESP 18; TEMP 36.9; O2SAT 98; BMI 22.7
[2021-07-30 21:26] LABS: Add Manual Diff / Slide Review NO; Basophils Absolute Auto 0 /uL (0-100); Basophils Percent Auto 0.4 % (0-2); Eosinophils Absolute Auto 200 /uL (0-450); Eosinophils Percent Auto 4.1 % (2-4); Hemoglobin 11.5 g/dL (12.0-16.0); Lymphocytes Absolute Auto 1600 /uL (1100-4500); Lymphocytes Percent Auto 28.8 % (25-40); Mean Corpuscular HGB Conc 33.9 % (30-36); Mean Corpuscular Hemoglobin 29.9 PG (26-34); Mean Corpuscular Volume 88.4 fL (80-100); Monocytes Absolute Auto 400 /uL (0-900); Neutrophils Absolute Auto 3200 /uL (1500-7000); Neutrophils Percent Auto 58.7 % (50-75); Platelet Count 212 X10^3/uL (150-400); Red Blood Cell Count 3.84 X10^6/uL (4.0-5.2); Red Cell Distribution Width 14.7 % (11.6-14.8); White Blood Cell Count 5.4 X10^3/uL (4.5-11.0)
--- NOTE | 2021-07-30 22:41 | ED.GIBLEED ---
HPI - GI Bleed General Chief complaint: GI Bleed Stated complaint: POST OP BLEEDING S/P POLYP REMOVAL Time Seen by Provider: 07/30/21 22:40 Source: patient Mode of arrival: Ambulatory History of Present Illness HPI Narrative: 50-year-old woman comes in with bloody diarrhea that started approximately 5:00 p.m.. She had a 3 cm sessile polyp at the splenic flexure/70 cm removed the morning of . She felt well after the initial procedure and still is having no pain. She notes a minor amount of cramping. She is not complaining of dizziness but did note that she was told to follow-up with bleeding and it sounds like the bleeding that she has noticed is moderate at least. Related Data Home Medications Medication Instructions Recorded Confirmed Zyrtec See Rx Instructions .ROUTE .COMPLEX 05/22/21 07/29/21 Allergies Allergy/AdvReac Type Severity Reaction Status Date / Time No Known Drug Allergies Allergy Verified 05/21/21 15:12 Review of Systems Review of Systems Narrative: Pertinent positive and negative findings as per HPI Remainder of review of systems is otherwise unremarkable for Constitutional: Fevers, chills, weakness ENT: No sore throat, neck pain, ear pain CV: Chest pain, palpitations, Respiratory: Cough, wheeze, dyspnea : Dysuria, hematuria, Patient History Medical History (Updated 07/30/21 @ 23:01 by Janice Fernandez MD) Colon polyp Lymph node disorder Multiple nasal polyps Social History household members: spouse Smoking Status: Never smoker alcohol intake: current Smoking Status: Never smoker alcohol intake frequency: holidays/special occasions only Substance Use Type: does not use Exam Initial Vital Signs Initial Vital Signs: Vital Signs Temperature 98.4 F 07/30/21 20:47 Pulse Rate 112 H 07/30/21 20:47 Respiratory Rate 18 07/30/21 20:47 Blood Pressure 119/78 07/30/21 20:47 Pulse Oximetry 98 07/30/21 20:47 General: Healthy appearing, in no acute distress. Able to give a complete and coherent history. Well-nourished well-developed HEENT: Moist mucous membranes, normal sclera with reactive pupils, Neck: No JVD, supple Respiratory: Lungs are clear to auscultation, no wheezing no rales no rhonchi. Full and symmetrical air movement Cardiac: Regular rate and rhythm no murmurs no bruits Abdomen: Soft, mild tenderness along the left side of her abdomen, no rebound or guarding. Hyperactive bowel tones. No flank pain Skin: Warm and dry, no rashes Neurologic: Grossly neurologically intact with no obvious asymmetries or abnormalities Extremities: No trauma, well perfused Psych: Cooperative, appropriate insight and affect Course Orders Ordered: ED Orders 07/30/21 21:15 CBC Auto Diff [Complete Blood Count AUTO DIFF] Stat 07/30/21 23:05 COVID19 -Nasal swab/Pre-Proc Stat 07/30/21 23:25 Hemoglobin and Hematocrit Stat Sodium Chloride (Normal Saline 0.9%) 1,000 mls @ 1,000 mls/hr IV BOLUS ONE Stop: 07/30/21 23:56 Last Admin: 07/30/21 23:24 Dose: 1,000 mls/hr Documented by: DBROYLE Sodium Chloride (Normal Saline 0.9%) 1,000 mls @ 150 mls/hr IV CONT DAWN Vital Signs Vital signs: Vital Signs - 8 hr 07/30/21 20:47 07/30/21 23:00 07/30/21 23:30 Temperature 98.4 F Pulse Rate 112 H 77 75 Respiratory Rate 18 16 16 Blood Pressure 119/78 121/68 117/56 L Pulse Oximetry 98 98 99 07/30/21 23:36 Temperature Pulse Rate 78 Respiratory Rate 16 Blood Pressure 109/59 L Pulse Oximetry 98 MDM - GI Bleed Lab Data Result diagrams: 07/30/21 23:25 Labs: Lab Results 07/30/21 07/30/21 07/30/21 Range/Units 21:15 23:05 23:25 WBC 5.4 (4.5-11.0) X10^3/uL RBC 3.84 L (4.0-5.2) X10^6/uL Hgb 11.5 L 10.5 L (12.0-16.0) g/dL Hct 34.0 L 30.8 L (36-46) % MCV 88.4 (80-100) fL MCH 29.9 (26-34) PG MCHC 33.9 (30-36) % RDW 14.7 (11.6-14.8) % Plt Count 212 (150-400) X10^3/uL Neut % (Auto) 58.7 (50-75) % Lymph % (Auto) 28.8 (25-40) % [place] % (Auto) 8.0 (3-14) % Eos % (Auto) 4.1 H (2-4) % Baso % (Auto) 0.4 (0-2) % Neut # (Auto) 3200 (5604-7322) /uL Lymph # (Auto) 1600 (5262-0723) /uL [place] # (Auto) 400 (0-900) /uL Eos # (Auto) 200 (0-450) /uL Baso # (Auto) 0 (0-100) /uL SARS-CoV-2 (PCR) Negative (Negative) MDM Narrative Medical decision making narrative: 50-year-old woman now 36 hours post 3 cm polyp removal at the splenic flexure with acute onset of bloody diarrhea, she describes mostly red blood with clots Minimal stool is mixed in with it. Started at 5:00 p.m. this evening seems to be slowing a bit with the last episode at 10:00 p.m.. Not associated with pain although she does note some mild cramping. She is hemodynamically stable. Care is reviewed with Dr. Sosa, surgery given the acute onset, the large polyp at the splenic flexure recently removed and the moderate volume of blood that she is describing will opt for observation hospital admission, gentle hydration, clear liquid diet, repeat H&H and re-evaluation in the morning. His suggestion was that she be admitted to Dr London's service (pcp is Dr Luke)with consult going to either him or Dr. Velez if she is having dramatically worsening symptoms. Discharge Plan Departure Patient Disposition: Admitted as Observation Clinical Impression: Lower gastrointestinal hemorrhage, Colon polyp
[2021-07-30 23:00] VITALS: BP 121/68; PULSE 77; RESP 16; O2SAT 98
[2021-07-30] MEDS: SODIUM CHLORIDE 0.9% 1,000 ML 1000 ML IV (23:24)
[2021-07-30 23:30] VITALS: BP 117/56; PULSE 75; RESP 16; O2SAT 99
[2021-07-30 23:32] LABS: Hematocrit 30.8 % (36-46); Hemoglobin 10.5 g/dL (12.0-16.0)
[2021-07-30 23:36] VITALS: BP 109/59; PULSE 78; RESP 16; O2SAT 98
[2021-07-30 23:39] LABS: COVID19 -Nasal RAPID Negative (Negative)
[2021-07-30 23:55] VITALS: BP 129/59; PULSE 76; RESP 16; TEMP 35.6; O2SAT 100
[2021-07-31] VITALS (18 sets, daily range): BP systolic 95–128; BP diastolic 44–73; PULSE 75–95; RESP 14–18; TEMP 36.3–37.1; O2SAT 97–100; BMI 24.0
[2021-07-31] MEDS: SODIUM CHLORIDE 0.9% 1,000 ML 150 ML IV ×3 (00:24→19:56)
--- NOTE | 2021-07-31 01:19 | PC.NURSE ---
Pt. admitted to room 205 @ 0005 for rectal bleeding S/P colonoscopy with polyps removal. Denies any nausea , pain level @ 05/18 when admitted. Oriented to her room showed how to use her call light, TV & bed controls. Denies any recent fall for the past 3 months. Denies any dizziness, will cont. POC & monitor.
--- NOTE | 2021-07-31 01:52 | PC.NURSE ---
Pt. declined to place her money & valuables in the safe. Wants to keep it in the room & stored it in the closet. Since she was admitted to the floor @ 0005, she was up to the BSC X2 & had moderate blood clotted, dark stools. Denies any dizziness & reported I'm feeling okay. Will monitor.
[2021-07-31 03:21] LABS: Add Manual Diff / Slide Review NO; Basophils Absolute Auto 0 /uL (0-100); Basophils Percent Auto 0.3 % (0-2); Eosinophils Absolute Auto 100 /uL (0-450); Eosinophils Percent Auto 3.1 % (2-4); Hematocrit 25.8 % (36-46); Hemoglobin 8.5 g/dL (12.0-16.0); Lymphocytes Absolute Auto 1200 /uL (1100-4500); Lymphocytes Percent Auto 26.9 % (25-40); Mean Corpuscular HGB Conc 32.9 % (30-36); Mean Corpuscular Hemoglobin 29.5 PG (26-34); Mean Corpuscular Volume 89.6 fL (80-100); Monocytes Absolute Auto 300 /uL (0-900); Monocytes Percent Auto 7.4 % (3-14); Neutrophils Absolute Auto 2800 /uL (1500-7000); Neutrophils Percent Auto 62.3 % (50-75); Platelet Count 176 X10^3/uL (150-400); Red Blood Cell Count 2.88 X10^6/uL (4.0-5.2); Red Cell Distribution Width 14.5 % (11.6-14.8); White Blood Cell Count 4.5 X10^3/uL (4.5-11.0)
[2021-07-31 06:53] LABS: Add Manual Diff / Slide Review NO; Basophils Absolute Auto 0 /uL (0-100); Basophils Percent Auto 0.3 % (0-2); Eosinophils Absolute Auto 100 /uL (0-450); Eosinophils Percent Auto 3.2 % (2-4); Hematocrit 22.4 % (36-46); Hemoglobin 7.6 g/dL (12.0-16.0); Lymphocytes Absolute Auto 900 /uL (1100-4500); Mean Corpuscular HGB Conc 33.8 % (30-36); Mean Corpuscular Hemoglobin 29.9 PG (26-34); Mean Corpuscular Volume 88.4 fL (80-100); Monocytes Absolute Auto 300 /uL (0-900); Monocytes Percent Auto 8.3 % (3-14); Neutrophils Absolute Auto 2500 /uL (1500-7000); Neutrophils Percent Auto 65.2 % (50-75); Platelet Count 162 X10^3/uL (150-400); Red Blood Cell Count 2.53 X10^6/uL (4.0-5.2); Red Cell Distribution Width 14.4 % (11.6-14.8); White Blood Cell Count 3.9 X10^3/uL (4.5-11.0)
[2021-07-31 07:02] LABS: BUN Creatinine Ratio 23.1 (6-22); Blood Urea Nitrogen 12 mg/dL (7-17); Calcium 6.8 mg/dL (8.4-10.2); Carbon Dioxide 24 mmol/L (22-32); Chloride 114 mmol/L (98-107); Estimated Glomerular Filt Rate > 60.0 mL/min (>60); Glucose 97 mg/dL (70-100); HEMOLYSIS < 15 (0-50); Potassium 3.7 mmol/L (3.4-5.1); Sodium 138 mmol/L (137-145)
--- NOTE | 2021-07-31 07:35 | PC.NURSE ---
Pt. C/O dizziness this morning, states this is the first time I got lightheaded, I been fine all night. Void urine mixed with blood 150 cc, bedside report done & day RN aware of patient symptoms. Will monitor.
--- NOTE | 2021-07-31 08:32 | P.HP_ITS ---
History of Present Illness History of Present Illness Date Patient Seen: 07/31/21 Time Patient Seen: 08:32 Chief complaint: POST OP BLEEDING S/P POLYP REMOVAL Narrative: Pt received colonoscopy with Dr. Velez 07/29 which was uneventful except for removal of large 3cm sessile lesion at splenic flexure with some bleeding that was controlled at the time. She felt fine for a couple days however presented to ED last night with increasing quantity of maroon-colored stools and low Hgb. The case was discussed with Dr. Sosa at the time by ED doc. This morning Hgb still dropping close to 7 with copious maroon BMs will order 2Us PRBCs and talk to surgery. She feels fine with no pain this morning. Baseline takes no meds except occasional zyrtec. Patient History Medical History Colon polyp Lymph node disorder Multiple nasal polyps Family & Social History Social History: household members spouse Prior Living Arrangements House Safety & Behavioral: Feels Safe in Current Yes Environment Been Physically Hurt or No Threatened By a Person Suicidal Ideation Description None Suicide Plan Description No Plan Tobacco & Substance use: Smoking Status Never smoker alcohol intake current alcohol intake frequency holiday/special occasion Substance Use Type does not use Meds Home Medications and Allergies Home Medications Medication Instructions Recorded Confirmed Type Zyrtec See Rx Instructions .ROUTE .COMPLEX 05/22/21 07/31/21 History Allergies Allergy/AdvReac Type Severity Reaction Status Date / Time No Known Drug Allergies Allergy Verified 05/21/21 15:12 Review of Systems Review of Systems Narrative: all systems reviewed and unremarkable except as otherwise documented in HPI. Exam Vital Signs (past 8 hours): - 07/31/21 01:55 07/31/21 03:00 07/31/21 05:17 Temperature 97.4 F L 97.3 F L 97.9 F Pulse Rate 83 75 88 Respiratory Rate 16 16 18 Blood Pressure 101/57 L 95/62 103/56 L Pulse Oximetry 100 98 98 07/31/21 07:00 Temperature 97.3 F L Pulse Rate 86 Respiratory Rate 16 Blood Pressure 102/61 Pulse Oximetry 98 Oxygen Delivery Method Room Air Oxygen Flow Rate 0 Narrative Exam Narrative: lying comfortably in bed Const General: cooperative, comfortable and well developed [facility] Head: normal to inspection, normocephalic and atraumatic Eyes General: appearance normal, both eyes and all related structures Neck Neck: normal visual inspection, full ROM and trachea midline Resp Effort & Inspection: normal respiratory effort and able to speak in complete sentences Auscultation: clear to auscultation bilaterally Cardio Rate: regular rate Rhythm: regular rhythm Heart Sounds: S1 normal and S2 normal GI Other: soft nontender active bowels sounds Skin Other: no lesion. pale. Neuro General: patient alert, patient awake, patient oriented x3, moves all extremities, CN's II-XI intact bilaterally and deep tendon reflexes 2+ bilaterally Extrem General: normal to inspection, full ROM and No pedal edema Psych Appearance: grossly normal and well kempt Mental Status: mental status grossly normal Speech and Movement: speech and movement normal Objective Labs Result Diagrams: 07/31/21 06:41 07/31/21 06:41 Labs: Laboratory Results - last 24 hr 07/30/21 07/30/21 07/30/21 21:15 23:05 23:25 WBC 5.4 RBC 3.84 L Hgb 11.5 L 10.5 L Hct 34.0 L 30.8 L MCV 88.4 MCH 29.9 MCHC 33.9 RDW 14.7 Plt Count 212 Neut % (Auto) 58.7 Lymph % (Auto) 28.8 Real % (Auto) 8.0 Eos % (Auto) 4.1 H Baso % (Auto) 0.4 Neut # (Auto) 3200 Lymph # (Auto) 1600 Real # (Auto) 400 Eos # (Auto) 200 Baso # (Auto) 0 Sodium Potassium Chloride Carbon Dioxide BUN Creatinine Estimated GFR BUN/Creatinine Ratio Glucose Calcium SARS-CoV-2 (PCR) Negative 07/31/21 07/31/21 07/31/21 02:58 06:41 06:41 WBC 4.5 3.9 L RBC 2.88 L 2.53 L Hgb 8.5 L 7.6 L Hct 25.8 L 22.4 L MCV 89.6 88.4 MCH 29.5 29.9 MCHC 32.9 33.8 RDW 14.5 14.4 Plt Count 176 162 Neut % (Auto) 62.3 65.2 Lymph % (Auto) 26.9 23.0 L Real % (Auto) 7.4 8.3 Eos % (Auto) 3.1 3.2 Baso % (Auto) 0.3 0.3 Neut # (Auto) 2800 2500 Lymph # (Auto) 1200 900 L Real # (Auto) 300 300 Eos # (Auto) 100 100 Baso # (Auto) 0 0 Sodium 138 Potassium 3.7 Chloride 114 H Carbon Dioxide 24 BUN 12 Creatinine 0.52 Estimated GFR > 60.0 BUN/Creatinine Ratio 23.1 H Glucose 97 Calcium 6.8 L SARS-CoV-2 (PCR) Assessment & Plan Assessment & Plan narrative: #acute anemia #acute GI bleed s/p colonoscopy Hgb dropping to near 7 this morning, likely some of this is dilutional however she is continuing to have maroon stool output the GI bleed evidently is continuing unabated. Xfusing 2 Us PRBCs consulted surgery Dr. Herman appreciate input given location and severity of lesion she may be in line for resection regardless so repeat scope may not be productive #hypocalcemia mild per a.m. labs will supplement PO and recheck with CMP tomorrow for albumin correction #colonic polyp pending pathology #seasonal allergies stable off meds no pollen in here code: full diet: NPO dvt ppx: Active bleed- SCDs as tolerated Time Spent With Patient Critical Care time: I spent a total of [] minutes of critical care time on this patient's care today; this time is exclusive of procedural time. Quality VTE Deep Vein Thrombosis/Pulmonary Embolism Present on Admission: No
--- NOTE | 2021-07-31 12:53 | CM.IDA ---
Addendum entered by MARCI Ludwig 08/01/21 13:03: ADD: DC home today. no needs anticipated from this BILLING CLINICIAN. According to summary by Dr Mondragon: s/p lower gi bleed after polypectomy acute anemia secondary gi blood loss s/p 2 units prbcs. No additional surgery needed, now cleared for return home w/close f/u w/ PCP and surgical team LG Original Note: Initial DCP Assessment Note Pt is a 50 yo female, resident of [place], arrives with increasing quantity of maroon-colored stools and low Hgb after a recent colonoscopy w/ removal of large 3cm. Patient admitted inpatient for GI Bleed and awaiting scope this afternoon by surgical team PCP: Leland Luke Payer: [facility] Reviewed chart, pt discussed in multidisciplinary rounds this morning. Patient being transfused Patient sleeping soundly when this BILLING CLINICIAN arrived for bedside assessment. RN explains patient had a difficult evening and requests patient be allowed to sleep before scope procedure today No needs expected from DC planning team although will remain available in case this changes before DC, awaiting medical POC to unfold MARCI Butt Discharge Planning/Care Management CM Discharge Assessment Start: 07/31/21 12:46 Freq: Status: Active Protocol: Document 07/31/21 12:46 LG (Rec: 07/31/21 12:53 LG [id number]) Discharge Planning Assessment Assigned Bander Hand MARCI Herrera DPOA/Assigned Designee Name Jimbo Moore, spouse Contact Information [phone] Advance Directives? No Advance Directives on File No History Provided By Patient,Medical Record Prior Living Arrangements House Household Members spouse Type of transporation used prior to Drives own vehicle admit Independent with ADL's Yes Is patient alert and oriented? Yes Barriers to Discharge No Discharge Plan Home Transportation Arrangement Family Referrals Initiated None needed Additional Comment Awaiting surgery/scope to determine next steps in POC
--- NOTE | 2021-07-31 13:22 | PC.NURSE ---
2nd unit PRBC infusing. Pt reports BROUSSARD -07/16. She states might be from no coffee. denies abd cramps.
--- NOTE | 2021-07-31 15:47 | P.CONS_ITS ---
History of Present Illness Consult details Date Patient Seen: 07/31/21 Time Patient Seen: 15:47 Chief complaint: POST OP BLEEDING S/P POLYP REMOVAL Narrative: 50-year-old woman who had a large, 3 cm sessile polyp removed [address] Reynoso using piecemeal resection and EMR followed by argon plasma coagulation. She started bleeding last night and came to the emergency room with fairly copious bloody bowel movements. Since that time the frequency and volume of bloody bowel movements has declined significantly. She is currently receiving her 2nd unit of packed red blood cells. She remains asymptomatic. Meds Home Medications and Allergies Home Medications Medication Instructions Recorded Confirmed Type Zyrtec See Rx Instructions .ROUTE .COMPLEX 05/22/21 07/31/21 History Allergies Allergy/AdvReac Type Severity Reaction Status Date / Time No Known Drug Allergies Allergy Verified 05/21/21 15:12 Exam Vital Signs (past 8 hours): - 07/31/21 08:58 07/31/21 10:23 07/31/21 10:39 Temperature 98.0 F 98.8 F 98.2 F Pulse Rate 88 95 H 85 Respiratory Rate 16 16 16 Blood Pressure 107/65 101/58 L 99/53 L Pulse Oximetry 99 07/31/21 12:49 07/31/21 13:00 07/31/21 13:10 Temperature 97.8 F 98.1 F 97.8 F Pulse Rate 84 84 Respiratory Rate 16 16 Blood Pressure 103/55 L 98/44 L 103/55 L Pulse Oximetry 07/31/21 13:25 07/31/21 15:30 Temperature 98.1 F 97.6 F Pulse Rate 82 88 Respiratory Rate 16 16 Blood Pressure 98/44 L 105/61 Pulse Oximetry 97 Oxygen Delivery Method Room Air Oxygen Flow Rate 0 Const General: comfortable Resp Effort & Inspection: normal respiratory effort GI Palpation: soft Objective Labs Result Diagrams: 07/31/21 06:41 07/31/21 06:41 Labs: Laboratory Results - last 24 hr 07/30/21 07/30/21 07/30/21 21:15 21:15 23:05 WBC 5.4 RBC 3.84 L Hgb 11.5 L Hct 34.0 L MCV 88.4 MCH 29.9 MCHC 33.9 RDW 14.7 Plt Count 212 Neut % (Auto) 58.7 Lymph % (Auto) 28.8 [place] % (Auto) 8.0 Eos % (Auto) 4.1 H Baso % (Auto) 0.4 Neut # (Auto) 3200 Lymph # (Auto) 1600 [place] # (Auto) 400 Eos # (Auto) 200 Baso # (Auto) 0 Sodium Potassium Chloride Carbon Dioxide BUN Creatinine Estimated GFR BUN/Creatinine Ratio Glucose Calcium SARS-CoV-2 (PCR) Negative Blood Type A Positive Antibody Screen Negative Crossmatch See Detail 07/30/21 07/31/21 07/31/21 23:25 02:58 06:41 WBC 4.5 3.9 L RBC 2.88 L 2.53 L Hgb 10.5 L 8.5 L 7.6 L Hct 30.8 L 25.8 L 22.4 L MCV 89.6 88.4 MCH 29.5 29.9 MCHC 32.9 33.8 RDW 14.5 14.4 Plt Count 176 162 Neut % (Auto) 62.3 65.2 Lymph % (Auto) 26.9 23.0 L [place] % (Auto) 7.4 8.3 Eos % (Auto) 3.1 3.2 Baso % (Auto) 0.3 0.3 Neut # (Auto) 2800 2500 Lymph # (Auto) 1200 900 L [place] # (Auto) 300 300 Eos # (Auto) 100 100 Baso # (Auto) 0 0 Sodium Potassium Chloride Carbon Dioxide BUN Creatinine Estimated GFR BUN/Creatinine Ratio Glucose Calcium SARS-CoV-2 (PCR) Blood Type Antibody Screen Crossmatch 07/31/21 06:41 WBC RBC Hgb Hct MCV MCH MCHC RDW Plt Count Neut % (Auto) Lymph % (Auto) [place] % (Auto) Eos % (Auto) Baso % (Auto) Neut # (Auto) Lymph # (Auto) [place] # (Auto) Eos # (Auto) Baso # (Auto) Sodium 138 Potassium 3.7 Chloride 114 H Carbon Dioxide 24 BUN 12 Creatinine 0.52 Estimated GFR > 60.0 BUN/Creatinine Ratio 23.1 H Glucose 97 Calcium 6.8 L SARS-CoV-2 (PCR) Blood Type Antibody Screen Crossmatch [facility] Medical History Colon polyp Lymph node disorder Multiple nasal polyps Social History household members: spouse Tobacco & Substance Use Smoking Status: Never smoker alcohol intake: current Assessment & Plan Assessment and plan (1) Lower gastrointestinal hemorrhage: Status: Acute Plan GI bleed appears to be resolving spontaneously based on the volume of bloody bowel movements. Recommend continued observation tonight with repeat blood work in the morning. She can have clear liquids tonight and she should be NPO at midnight just in case she needs an intervention. If she continued to bleed I would most likely proceed with a left hemicolectomy since further endoscopic intervention increase the risk of perforation and she may need a colon resection anyway given the high probability of adenocarcinoma in the polyp. Time Spent With Patient Critical Care time: I spent a total of [] minutes of critical care time on this patient's care today; this time is exclusive of procedural time.
[2021-07-31] MEDS: ONDANSETRON 4 MG/2 ML INJ IV (16:04)
[2021-07-31 19:05] LABS: Add Manual Diff / Slide Review NO; Basophils Absolute Auto 0 /uL (0-100); Basophils Percent Auto 0.2 % (0-2); Eosinophils Absolute Auto 0 /uL (0-450); Eosinophils Percent Auto 0.4 % (2-4); Hematocrit 28.3 % (36-46); Hemoglobin 9.8 g/dL (12.0-16.0); Lymphocytes Absolute Auto 700 /uL (1100-4500); Lymphocytes Percent Auto 13.3 % (25-40); Mean Corpuscular HGB Conc 34.5 % (30-36); Mean Corpuscular Hemoglobin 30.6 PG (26-34); Mean Corpuscular Volume 88.7 fL (80-100); Monocytes Absolute Auto 200 /uL (0-900); Monocytes Percent Auto 3.2 % (3-14); Neutrophils Absolute Auto 4600 /uL (1500-7000); Neutrophils Percent Auto 82.9 % (50-75); Platelet Count 161 X10^3/uL (150-400); Red Blood Cell Count 3.19 X10^6/uL (4.0-5.2); Red Cell Distribution Width 14.8 % (11.6-14.8); White Blood Cell Count 5.6 X10^3/uL (4.5-11.0)
[2021-07-31] MEDS: CALCIUM CARBONATE 600 MG TABLET PO (20:41)
[2021-08-01] VITALS (8 sets, daily range): BP systolic 103–111; BP diastolic 54–67; PULSE 76–88; RESP 14–21; TEMP 36.5–36.8; O2SAT 97–100
[2021-08-01] MEDS: SODIUM CHLORIDE 0.9% 1,000 ML 150 ML IV (02:48)
[2021-08-01 06:30] LABS: Hematocrit 26.6 % (36-46); Hemoglobin 9.2 g/dL (12.0-16.0); Mean Corpuscular HGB Conc 34.6 % (30-36); Mean Corpuscular Hemoglobin 30.6 PG (26-34); Mean Corpuscular Volume 88.4 fL (80-100); Platelet Count 151 X10^3/uL (150-400); Red Cell Distribution Width 14.4 % (11.6-14.8); White Blood Cell Count 3.7 X10^3/uL (4.5-11.0)
[2021-08-01 06:39] LABS: Alanine Aminotransferase 13 IU/L (<35); Albumin 2.6 g/dL (3.5-5.0); Albumin Globulin Ratio 1.1 (1.0-2.8); Alkaline Phosphatase 37 U/L (38-126); Aspartate Aminotransferase 19 IU/L (14-36); BUN Creatinine Ratio 7.1 (6-22); Bilirubin Total 0.5 mg/dL (0.2-1.3); Blood Urea Nitrogen 4 mg/dL (7-17); Calcium 7.5 mg/dL (8.4-10.2); Carbon Dioxide 24 mmol/L (22-32); Chloride 113 mmol/L (98-107); Estimated Glomerular Filt Rate > 60.0 mL/min (>60); Globulin 2.3 g/dL (1.7-4.1); Glucose 87 mg/dL (70-100); HEMOLYSIS < 15 (0-50); Potassium 3.5 mmol/L (3.4-5.1); Sodium 139 mmol/L (137-145); Total Protein 4.9 g/dL (6.3-8.2)
--- NOTE | 2021-08-01 09:02 | PM.PN.1 ---
Subjective Subjective Interval history: No further bloody bowel movements overnight. But signs remain within normal limits. Exam Vital Signs (past 8 hours): - 08/01/21 03:00 08/01/21 05:00 08/01/21 07:00 Temperature 97.7 F Pulse Rate 76 86 84 Respiratory Rate 14 14 21 Blood Pressure 104/58 L 110/58 L Pulse Oximetry 97 98 100 Oxygen Delivery Method Room Air Oxygen Flow Rate 0 Const General: comfortable Resp Effort & Inspection: normal respiratory effort Objective Labs Result Diagrams: 08/01/21 05:52 08/01/21 05:52 Labs: Laboratory Results - last 24 hr 07/30/21 07/31/21 08/01/21 21:15 18:39 05:52 WBC 5.6 3.7 L RBC 3.19 L 3.00 L Hgb 9.8 L 9.2 L Hct 28.3 L 26.6 L MCV 88.7 88.4 MCH 30.6 30.6 MCHC 34.5 34.6 RDW 14.8 14.4 Plt Count 161 151 Neut % (Auto) 82.9 H Lymph % (Auto) 13.3 L [place] % (Auto) 3.2 Eos % (Auto) 0.4 L Baso % (Auto) 0.2 Neut # (Auto) 4600 Lymph # (Auto) 700 L [place] # (Auto) 200 Eos # (Auto) 0 Baso # (Auto) 0 Sodium Potassium Chloride Carbon Dioxide BUN Creatinine Estimated GFR BUN/Creatinine Ratio Glucose Calcium Total Bilirubin AST ALT Alkaline Phosphatase Total Protein Albumin Globulin Albumin/Globulin Ratio Blood Type A Positive Antibody Screen Negative Crossmatch See Detail 08/01/21 05:52 WBC RBC Hgb Hct MCV MCH MCHC RDW Plt Count Neut % (Auto) Lymph % (Auto) [place] % (Auto) Eos % (Auto) Baso % (Auto) Neut # (Auto) Lymph # (Auto) [place] # (Auto) Eos # (Auto) Baso # (Auto) Sodium 139 Potassium 3.5 Chloride 113 H Carbon Dioxide 24 BUN 4 L Creatinine 0.56 Estimated GFR > 60.0 BUN/Creatinine Ratio 7.1 Glucose 87 Calcium 7.5 L Total Bilirubin 0.5 AST 19 ALT 13 Alkaline Phosphatase 37 L Total Protein 4.9 L Albumin 2.6 L Globulin 2.3 Albumin/Globulin Ratio 1.1 Blood Type Antibody Screen Crossmatch [facility] Medical History Colon polyp Lymph node disorder Multiple nasal polyps Social History household members: spouse Smoking Status: Never smoker alcohol intake: current Assessment & Plan Assessment and plan (1) Lower gastrointestinal hemorrhage: Status: Acute Plan No further evidence of ongoing bleeding. Okay to advance diet and discharge home. Time Spent With Patient Critical Care time: I spent a total of [] minutes of critical care time on this patient's care today; this time is exclusive of procedural time. Quality VTE Deep Vein Thrombosis/Pulmonary Embolism Present on Admission: No
[2021-08-01] MEDS: SODIUM CHLORIDE 0.9% FLUSH 10 ML IV (09:23)
--- NOTE | 2021-08-01 11:39 | PM.DS.1 ---
History of Present Illness History of Present Illness Chief complaint: POST OP BLEEDING S/P POLYP REMOVAL Discharge Providers Provider Date of admission: 07/30/21 23:51 Discharge Date: 08/01/21 Primary care physician: Leland Shukla MD Consults: 07/31/21 08:46 Consult to General Surgery Routine Comment: Consulting Provider: Greyson Sosa Reason for consultation: worsening GI bleed s/p colonoscopy Discharge provider: Dena Mondragon MD Summary Hospital Course Discharge Diagnosis: Lower GI bleed status post colonoscopy and polypectomy, resolved Pathology unknown at this time Acute anemia secondary to GI blood loss, status post units packed red blood cells Hospital Course: Patient underwent colonoscopy and polypectomy of a large colonic polyp. He had lower GI bleeding approximately 2 days later and was found to be acutely anemic with hypotension and tachycardia. Patient was admitted to the hospital. She was made NPO. She was transfused 2 units packed red blood cells. General surgery was consulted and monitored her. Patient stabilized. She has not had any bowel movements in the last 20 4 hours and no GI bleeding. She tolerated p.o. intake this morning. Exam Vital Signs (past 8 hours): - 08/01/21 05:00 08/01/21 07:00 08/01/21 09:00 Temperature 97.7 F 98.0 F Pulse Rate 86 84 83 Respiratory Rate 14 21 20 Blood Pressure 104/58 L 110/58 L 111/61 Pulse Oximetry 98 100 99 08/01/21 09:09 08/01/21 11:00 Temperature 98.2 F Pulse Rate 87 Respiratory Rate 21 Blood Pressure 107/61 Pulse Oximetry 100 100 Oxygen Delivery Method Room Air Oxygen Flow Rate 0 Narrative Exam Narrative: Alert and oriented no apparent distress Afebrile, vital signs are stable HEENT: wnl, no pallor neck supple chest: cta bilatera cor: rrr without murmur abdomen: bs present x 4, non tender, non distended, no mass normal neuro exam Objective Labs Result Diagrams: 08/01/21 05:52 08/01/21 05:52 Labs: Laboratory Results - last 24 hr 07/30/21 07/31/21 08/01/21 21:15 18:39 05:52 WBC 5.6 3.7 L RBC 3.19 L 3.00 L Hgb 9.8 L 9.2 L Hct 28.3 L 26.6 L MCV 88.7 88.4 MCH 30.6 30.6 MCHC 34.5 34.6 RDW 14.8 14.4 Plt Count 161 151 Neut % (Auto) 82.9 H Lymph % (Auto) 13.3 L Deuel % (Auto) 3.2 Eos % (Auto) 0.4 L Baso % (Auto) 0.2 Neut # (Auto) 4600 Lymph # (Auto) 700 L Deuel # (Auto) 200 Eos # (Auto) 0 Baso # (Auto) 0 Sodium Potassium Chloride Carbon Dioxide BUN Creatinine Estimated GFR BUN/Creatinine Ratio Glucose Calcium Total Bilirubin AST ALT Alkaline Phosphatase Total Protein Albumin Globulin Albumin/Globulin Ratio Blood Type A Positive Antibody Screen Negative Crossmatch See Detail 08/01/21 05:52 WBC RBC Hgb Hct MCV MCH MCHC RDW Plt Count Neut % (Auto) Lymph % (Auto) Deuel % (Auto) Eos % (Auto) Baso % (Auto) Neut # (Auto) Lymph # (Auto) Deuel # (Auto) Eos # (Auto) Baso # (Auto) Sodium 139 Potassium 3.5 Chloride 113 H Carbon Dioxide 24 BUN 4 L Creatinine 0.56 Estimated GFR > 60.0 BUN/Creatinine Ratio 7.1 Glucose 87 Calcium 7.5 L Total Bilirubin 0.5 AST 19 ALT 13 Alkaline Phosphatase 37 L Total Protein 4.9 L Albumin 2.6 L Globulin 2.3 Albumin/Globulin Ratio 1.1 Blood Type Antibody Screen Crossmatch [facility] Medical History Colon polyp Lymph node disorder Multiple nasal polyps Social History household members: spouse Smoking Status: Never smoker alcohol intake: current Discharge Assessment & Plan Assessment and Plan Assessment: colon polyp, s/p lower gi bleed after polypectomy acute anemia secondary gi blood loss s/p 2 units prbcs Plan of Treatment: d/c home fu with dr. shukla next tuesday fu with dr. Velez and Dr. Herman routine instructions bland diet and advance as tolerated Discharge Plan Discharge Plan Patient Disposition: Home Discharge orders & Medications Prescriptions: Continued Zyrtec tablet See Rx Instructions .ROUTE .COMPLEX 0RF Rx Instructions: pt takes daily 1 tablet Follow up/Referrals: Leland Shukla MD [Primary Care Provider] - Discharge Health Status Multidrug resistant organism: No MDRO Diet/Activity/Treatments Diet: Diet as Tolerated Diet comment: advance as tolerated Activity: no heavy exertion Discharge Data Primary Care Provider: Leland Shukla Quality VTE Deep Vein Thrombosis/Pulmonary Embolism Present on Admission: No
--- NOTE | 2021-08-01 15:47 | PC.NURSE ---
Discharged by provider. Pt verbalized understanding of all written and verbal d/c instructions. IVs removed. Tele removed. Pt dressed and ambulated off unit escorted by this RN. Pt left in stable condition with all personal belongings.
== END 2021-08-01 14:15 | disposition home or self-care (01) | DRG 812 ==
LOC: ED 23:01 → AC 07-31 07:42
PROVIDERS: Surgery; Admitting Provider Student in an Organized Health Care Education/Training Program; Emergency Provider Emergency Medicine; Family Provider Nurse Practitioner Family; PCP Family Medicine; Visit Provider Student in an Organized Health Care Education/Training Program
DX: D62 Acute posthemorrhagic anemia (principal); K91.840 Postprocedural hemorrhage of a digestive system organ or structure following a digestive system procedure; K63.5 Polyp of colon; Z20.822 Contact with and (suspected) exposure to COVID-19
CPT/HCPCS: 36415; 36430; 80048; 80053; 85014; 85018; 85025; 85027; 86850; 86900; 86901; 87635; 94762; 99231; 99232; 99283; C9803; P9016; J2405

== ENCOUNTER → 2022-01-13 08:36 | Outpatient (CLI) | payer OTHER, SELFPAY ==
[2021-07-31 00:05] VITALS: BMI 24.0
[2022-01-13 11:57] LABS: Follicle Stimulating Hormone 12.4 mIU/mL
== END ==
PROVIDERS: Family Provider Nurse Practitioner Family; PCP Family Medicine; Referring Provider Obstetrics & Gynecology; Visit Provider Obstetrics & Gynecology
DX: N92.6 Irregular menstruation, unspecified (principal)
CPT/HCPCS: 36415; 83001

== ENCOUNTER → 2022-04-28 13:06 | Outpatient (CLI) | payer OTHER, SELFPAY ==
[2021-07-31 00:05] VITALS: BMI 24.0
--- NOTE | 2022-04-28 13:07 | DI.US.S_ITS ---
PROCEDURE: US PELVIC COMPLETE INDICATIONS: OVARIAN CYST TECHNIQUE: Real-time scanning was performed of the pelvic organs, with image documentation. Additional endovaginal scanning was necessary due to incomplete visualization of the adnexal and endometrial structures by transabdominal scanning. COMPARISON: [facility], US, US PELVIC COMPLETE, 03/22/2022, 10:11. FINDINGS: Uterus: Uterus is retroverted and normal in size at 9.1 x 6.3 x 5.4 cm. The myometrium is homogeneous. The endometrium measures 9 mm combined thickness. IUD centered in the endometrial cavity. Ovaries: The right ovary measures 3.4 x 3.2 x 1.6 cm, with a calculated ovarian volume of 9 cc. The left ovary measures 4.5 x 2.5 x 1.9 cm, with a calculated ovarian volume of 11 cc. The ovaries have a normal sonographic appearance. Less than 12 follicles can be seen in each ovary. No adnexal masses are seen. Simple right ovarian cyst measuring 2 cm. Complex left ovarian cyst measuring 2.6 x 2.4 x 1.6 cm. There is internal lacy appearance and peripheral vascularity. (Prior exam measures a cyst measuring 4.1 cm. Image labeling and report are not available). Other: No pathologic free abdominal or pelvic fluid. IMPRESSION: 1. Complex left ovarian cyst measuring 2.6 cm. This most likely represents a hemorrhagic cyst or corpus luteum. A follow-up pelvic ultrasound in 6-12 weeks could be considered to demonstrate resolution. 2. IUD in the expected location. We strive to produce accurate, complete, and clear reports of imaging services. To assist us in improving patient care, this report was composed using standard report templates and voice recognition software. Therefore, it may contain abnormal punctuation, insertions and/or omissions. Occasional wrong-word or sound-alike substitutions may occur. Though we review the report and make efforts to correct it, we do recommend that the report be read carefully in proper context to recognize any text inaccuracies. Dictated by: Vignesh Broderick M.D. on 04/29/2022 at 9:08 Approved by: Vignesh Broderick M.D. on 04/29/2022 at 9:14
== END ==
PROVIDERS: Family Provider Nurse Practitioner Family; PCP Family Medicine; Referring Provider Obstetrics & Gynecology; Visit Provider Obstetrics & Gynecology
DX: N83.291 Other ovarian cyst, right side (principal); N83.292 Other ovarian cyst, left side; Z30.431 Encounter for routine checking of intrauterine contraceptive device
CPT/HCPCS: 76830; 76856

== ENCOUNTER 2022-07-08 08:50 | Day surgery (SDC) | payer OTHER, SELFPAY ==
[2021-07-31 00:05] VITALS: BMI 24.0
--- NOTE | 2022-07-08 | PATH_ITS ---
[facility] Accession Number: [id number] No. of containers..02 Tissue . 01 Material submitted: . PART A: splenic flexure - OLD SPLENIC FLEXURE BIOPSY POLYPS PART B: splenic flexure - DISTAL-OLD SPLENIC FLEXURE BIOPSY POLYP . 01 Diagnosis: A. Old Splenic Flexure Polyps, Biopsy: Tubulovillous adenoma fragments x2. Tubular adenoma fragment x1. . B. Distal-Old Splenic Flexure Polyp, Biopsy: Colonic mucosa with benign lymphoid aggregate. MRV 07/13/2022 1330 Local . 01 Electronically signed: . Malathi Lopez MD, Pathologist NPI- [id number] . 01 Gross description: . Part A: OLD SPLENIC FLEXURE BIOPSY POLYPS: Received in formalin are 4 fragment(s) of lockett, soft tissue measuring 0.2 x 0.2 x 0.1 cm to 0.6 x 0.3 x 0.3 cm submitted entirely in 1 cassette(s) Part B: DISTAL-OLD SPLENIC FLEXURE BIOPSY POLYP: Received in formalin are 2 fragment(s) of lockett, soft tissue measuring 0.1 x 0.1 x 0.1 cm to 0.3 x 0.1 x 0.1 cm submitted entirely in 1 cassette(s) /BELLA 07/09/2022 0054 Local . 01 Pathologist provided ICD-10: D12.3, K63.89 . 01 CPT . 369827, 585471 Specimen Comment: A courtesy copy of this report has been sent to [phone] Performed at: 01 [facility] [address] [place] [address] Suite [facility][note 3], [place], [place] [id number] MD Rashi Medeiros MD Phone: [phone]
[2022-07-08] MEDS: LACTATED RINGERS 1,000 ML 42 ML IV ×2 (09:00→10:35)
[2022-07-08 09:08] VITALS: BP 105/69; PULSE 83; RESP 17; TEMP 36.6; O2SAT 98; BMI 22.7
--- NOTE | 2022-07-08 10:23 | PM.PREOP ---
Pre-operative Note COVID-19 COVID-19 status: Not tested Interval Note History & Physical reviewed/Exam performed by Physician: Yes Changes to H&P: No ASA Class (for procedural sedation): II
[2022-07-08 11:24] VITALS: BP 92/59; PULSE 75; RESP 19; TEMP 36.9; O2SAT 98
--- NOTE | 2022-07-08 11:26 | PM.OP.COLON ---
Operative Date/Time/Diagnoses Date of procedure: 07/08/22 Time of procedure: 11:26 Pre-op diagnosis: History of large colon polyp Post-op diagnosis: same Procedure & Clinicians Study performed: Colonoscopy Same procedure as scheduled: Yes Surgeon: Diony Herman Procedure Notes Procedure in detail: Surgeon: Diony Herman MD Anesthesia: Daniella Osorio CRNA Procedure: The patient was brought to the endoscopy suite, placed in left lateral decubitus position. The patient was connected to monitoring devices. A time-out was performed. Sedation was administered. Once the patient was adequately sedated, a digital rectal exam was performed and was normal. The scope was then inserted and advanced to the cecum where the appendiceal orifice was identified and photographed. The scope was then slowly withdrawn over greater than 6 minutes. The mucosa was thoroughly inspected. The tattoo ink from the procedure last year was visualized. It is unclear if this was in the splenic flexure or somewhat more proximally in the transverse colon. There was a 5 mm polyp along the edge of the tattoo ink which was removed with a cold snare. There was additional irregularity of the mucosa in another portion of the perimeter of the tattoo ink which was lifted with saline lift and then removed with cold snare. There was further irregular tissue just distal to this which may be scar tissue and was sampled with multiple biopsies with cold forceps. The scope was retroflexed in the rectum. No other abnormalities were seen. The scope was straightened and removed. The patient was awakened and brought to recovery. Scope withdrawal time: 33 minutes Sedation time: 46 minutes EBL: 5 mL Findings: Additional polypoid tissue and irregular mucosa at the location of the old polypectomy site which was felt to be an either the transverse colon or splenic flexure Post-procedure Disposition: PACU
[2022-07-08 11:29] VITALS: BP 95/65; PULSE 73; RESP 18; TEMP 36.4; O2SAT 96
[2022-07-08 11:35] VITALS: BP 103/67; PULSE 74; RESP 16; TEMP 36.3; O2SAT 99
== END 2022-07-08 11:59 | disposition home or self-care (01) ==
PROVIDERS: Family Provider Nurse Practitioner Family; PCP Family Medicine; Referring Provider Surgery; Visit Provider Surgery
PROC: 0DJD8ZZ Inspection of Lower Intestinal Tract, Via Natural or Artificial Opening Endoscopic (ICD-10-PCS; CPT 45378; principal; 2022-07-08 09:45)
DX: Z12.11 Encounter for screening for malignant neoplasm of colon (principal); Z86.010 Personal history of colon polyps; D12.3 Benign neoplasm of transverse colon
CPT/HCPCS: 45381; 45380; 45385; J2704

== ENCOUNTER → 2022-10-19 07:50 | Outpatient (CLI) | payer OTHER, SELFPAY ==
[2021-07-31 00:05] VITALS: BMI 24.0
--- NOTE | 2022-10-19 07:50 | DI.US.S_ITS ---
PROCEDURE: US PELVIC COMPLETE INDICATIONS: COMPLEX LEFT OVARIAN CYST TECHNIQUE: Real-time scanning was performed of the pelvic organs, with image documentation. Additional endovaginal scanning was necessary due to incomplete visualization of the adnexal and endometrial structures by transabdominal scanning. COMPARISON: [facility], US, US PELVIC COMPLETE, 04/28/2022, 13:37. FINDINGS: Uterus: Uterus is retroverted and enlarged in size at 8.5 x 5.7 x 5 cm. The myometrium is homogeneous. No discrete uterine fibroids. The endometrium measures 5.9 mm combined thickness. Intrauterine device is noted in its central endometrial location. No endometrial mass or fluid. Ovaries: The right ovary measures 2.9 x 2.4 by with 2.5 cm, with a calculated ovarian volume of 5.1 cc. The left ovary measures 5.8 x 3.6 x 2.8 cm, with a calculated ovarian volume of 30.3 cc. Previously noted thick walled complex appearing cyst with peripheral vascularity in left ovary is again seen now measures 2.7 x 2.5 x 2.4 cm in size previously measures 2.6 x 1.6 x 2.4 cm in size. Less than 12 follicles can be seen in each ovary. No adnexal masses are seen. Other: No pathologic free abdominal or pelvic fluid. IMPRESSION: 1. Intrauterine device in situ. No endometrial mass or fluid. No discrete uterine fibroids. 2. Thick walled complex cystic structure again seen in left ovary slightly increased in size compared to previous study as above. No definite solid appearing ovarian lesion. We strive to produce accurate, complete, and clear reports of imaging services. To assist us in improving patient care, this report was composed using standard report templates and voice recognition software. Therefore, it may contain abnormal punctuation, insertions and/or omissions. Occasional wrong-word or sound-alike substitutions may occur. Though we review the report and make efforts to correct it, we do recommend that the report be read carefully in proper context to recognize any text inaccuracies. Dictated by: Daniel Cardenas M.D. on 10/19/2022 at 10:37 Approved by: Daniel Cardenas M.D. on 10/19/2022 at 10:43
== END ==
PROVIDERS: Family Provider Nurse Practitioner Family; PCP Family Medicine; Referring Provider Obstetrics & Gynecology; Visit Provider Obstetrics & Gynecology
DX: N83.292 Other ovarian cyst, left side (principal); Z97.5 Presence of (intrauterine) contraceptive device
CPT/HCPCS: 76830; 76856

== ENCOUNTER 2023-02-03 06:43 | Day surgery (SDC) | payer OTHER, SELFPAY ==
[2021-07-31 00:05] VITALS: BMI 24.0
--- NOTE | 2023-02-03 | PATH_ITS ---
[facility] Accession Number: [id number] No. of containers..01 Tissue . 01 Material submitted: . splenic flexure - SPLENIC FLEXTURE MUCOSA . 01 Diagnosis: A. Splenic Flexure Mucosa, Biopsy: Colonic mucosa with benign lymphoid aggregates and endoscopic tatoo pigment. No evidence of dysplasia or neoplasia. MRV 02/08/2023 2323 Local . 01 Electronically signed: . Xi Resendiz MD, Pathologist NPI- [id number] . 01 Gross description: . SPLENIC FLEXTURE MUCOSA: Received in formalin is 3 fragment(s) of lockett, soft tissue measuring 0.5 x 0.3 x 0.1 cm to 0.3 x 0.3 x 0.1 cm submitted entirely in 1 cassette(s) /AAY 02/04/2023 0138 Local . 01 Pathologist provided ICD-10: K63.89 . 01 CPT . 814235 Specimen Comment: A courtesy copy of this report has been sent to [phone] Performed at: 01 [facility] [address] [place] [address], [place], [place] [id number] MD Rashi Medeiros MD Phone: [phone]
[2023-02-03 06:53] VITALS: BP 105/66; PULSE 74; RESP 14; TEMP 36.3; O2SAT 100; BMI 22.8
[2023-02-03] MEDS: LACTATED RINGERS 1,000 ML 42 ML IV (07:10)
--- NOTE | 2023-02-03 07:45 | P.HP_ITS ---
History of Present Illness History of Present Illness Date Patient Seen: 02/03/23 Time Patient Seen: 07:45 Chief complaint: SDC Narrative: Lucinda is a 52-year-old woman who has a history of an advanced adenoma near her splenic flexure. Her last colonoscopy was 6 months ago and there was residual tubulovillous adenoma at the site of the old biopsy scar. She is here for her six-month follow-up colonoscopy. [facility] Medical History Allergies (~1970) Chicken pox (~1977) Colon polyp Heavy menstrual period (~2011) Lymph node disorder Multiple nasal polyps Surgical History Anesthesia History of surgery (~1997) Nasal polyp Family History Grandfather History of heart disease Social History household members: spouse Smoking Status: Never smoker alcohol intake: current Meds Home Medications and Allergies Home Medications Medication Instructions Recorded Confirmed Type Zyrtec See Rx Instructions .Route .COMPLEX 05/22/21 02/03/23 History Allergies Allergy/AdvReac Type Severity Reaction Status Date / Time No Known Drug Allergies Allergy Verified 02/03/23 06:52 Exam Vital Signs (past 8 hours): - 02/03/23 06:53 Temperature 97.3 F L Pulse Rate 74 Respiratory Rate 14 Blood Pressure 105/66 Pulse Oximetry 100 Oxygen Delivery Method Room Air Oxygen Delivery Method Room Air Const General: healthy appearing Resp Effort & Inspection: normal respiratory effort Assessment & Plan Assessment and plan (1) Tubulovillous adenoma of colon: Status: Acute Plan We reviewed the risks and benefits of surveillance colonoscopy due to her history of advanced tubulovillous adenoma and she would like to proceed.
[2023-02-03 08:28] VITALS: BP 92/57; BP 96/55; PULSE 68; PULSE 69; RESP 16; RESP 20; TEMP 36.2; O2SAT 99
--- NOTE | 2023-02-03 08:28 | PM.OP.COLON ---
Operative Date/Time/Diagnoses Date of procedure: 02/03/23 Time of procedure: 08:28 Pre-op diagnosis: History of tubulovillous adenoma Post-op diagnosis: same Procedure & Clinicians Study performed: Colonoscopy Same procedure as scheduled: Yes Surgeon: Diony Herman Procedure Notes Procedure in detail: Surgeon: Diony Herman MD Anesthesia: Drea Palomino D.O. Procedure: The patient was brought to the endoscopy suite, placed in left lateral decubitus position. The patient was connected to monitoring devices. A time-out was performed. Sedation was administered. Once the patient was adequately sedated, a digital rectal exam was performed and was normal. The scope was then inserted and advanced to the cecum where the appendiceal orifice was identified and photographed. The scope was then slowly withdrawn over greater than 6 minutes. The mucosa was thoroughly inspected. Area of tattoo ink near the splenic flexure was examined thoroughly. There was no obvious polypoid tissue there. There was some irregularity adjacent to the tattoo which potentially be scar tissue versus adenomatous tissue. This mucosa was biopsied using a cold snare as well as several bites using the Jumbo forceps and sent together. No other abnormalities were seen throughout the colon. The scope was retroflexed in the rectum. No further abnormalities were noted. The scope was straightened and removed. The patient was awakened and brought to recovery. Scope withdrawal time: 17 minutes Sedation time: 31 minutes EBL: 5 mL Findings: Subtle irregular tissue near the hepatic flexure tattoo consistent with scar tissue prior biopsies Post-procedure Disposition: PACU
[2023-02-03 08:36] VITALS: BP 100/60; PULSE 63; RESP 20; O2SAT 99
[2023-02-03 08:40] VITALS: BP 101/61; PULSE 70; RESP 16; O2SAT 98
== END 2023-02-03 08:45 | disposition home or self-care (01) ==
PROVIDERS: Family Provider Nurse Practitioner Family; PCP Family Medicine; Referring Provider Surgery; Visit Provider Surgery
PROC: 0DJD8ZZ Inspection of Lower Intestinal Tract, Via Natural or Artificial Opening Endoscopic (ICD-10-PCS; CPT 45378; principal; 2023-02-03 07:45)
DX: Z12.11 Encounter for screening for malignant neoplasm of colon (principal); Z86.010 Personal history of colon polyps
CPT/HCPCS: 45385; 45380; J2704

== ENCOUNTER → 2023-04-25 10:14 | Outpatient (CLI) | payer OTHER, SELFPAY ==
[2021-07-31 00:05] VITALS: BMI 24.0
--- NOTE | 2023-04-25 10:15 | DI.US.S_ITS ---
PROCEDURE: US PELVIC COMPLETE INDICATIONS: LEFT OVARIAN CYST FOLLOW UP TECHNIQUE: Real-time scanning was performed of the pelvic organs, with image documentation. Additional endovaginal scanning was necessary due to incomplete visualization of the adnexal and endometrial structures by transabdominal scanning. COMPARISON: [facility], US, US PELVIC COMPLETE, 04/28/2022, 13:37. [facility], US, US PELVIC COMPLETE, 03/22/2022, 10:11. [facility], US, US PELVIC COMPLETE, 10/19/2022, 8:05. FINDINGS: Uterus: Uterus is retroverted measuring 9.2 x 5.4 x 4.6 cm. The myometrium is homogeneous. The endometrium measures 3.8 mm combined thickness. There is an IUD in uterine cavity. Ovaries: The right ovary measures 3.6 x 1.9 x 1.6 cm, with a calculated ovarian volume of 5.7 cc. The left ovary measures 4.1 x 2.7 x 1.7 cm, with a calculated ovarian volume of 9 point cc. The ovaries have a normal sonographic appearance. Previously seen thick-walled complex cyst in left ovary is no longer visualized. There are a couple of simple cysts inferior to the left ovary measuring 2.8 cm and 0.6 cm. Less than 12 follicles can be seen in each ovary. No adnexal masses are seen. Other: No pathologic free abdominal or pelvic fluid. IMPRESSION: 1. Interval resolution of thick-walled complex cyst in left ovary. 2. A couple of new simple appearing cysts inferior to the left ovary. 3. IUD in uterus. We strive to produce accurate, complete, and clear reports of imaging services. To assist us in improving patient care, this report was composed using standard report templates and voice recognition software. Therefore, it may contain abnormal punctuation, insertions and/or omissions. Occasional wrong-word or sound-alike substitutions may occur. Though we review the report and make efforts to correct it, we do recommend that the report be read carefully in proper context to recognize any text inaccuracies. Dictated by: Karo Millan M.D. on 04/25/2023 at 12:54 Approved by: Karo Millan M.D. on 04/25/2023 at 12:59
== END ==
PROVIDERS: Family Provider Nurse Practitioner Family; PCP Family Medicine; Referring Provider Obstetrics & Gynecology; Visit Provider Obstetrics & Gynecology
DX: N83.292 Other ovarian cyst, left side (principal); Z97.5 Presence of (intrauterine) contraceptive device
CPT/HCPCS: 76830; 76856

== ENCOUNTER → 2023-06-24 | Outpatient (CLI) | payer OTHER, SELFPAY ==
[2021-07-31 00:05] VITALS: BMI 24.0
--- NOTE | 2023-06-24 15:15 | DI.MG.S_ITS ---
Patient Name: HECTOR HACKETT date: 1970 Sex: F Attending Physician: Linda Indications: Date: 06/24/2023 15:49 At the request of: ANGLE DIETRICH Procedure: MM screening mammo BI BILATERAL DIGITAL SCREENING MAMMOGRAM 3D/2D WITH CAD: 06/24/2023 CLINICAL: Routine screening. Comparison is made to exam dated: 05/25/2021 mammogram - [facility]. Both breasts are heterogeneously dense, which may obscure small masses (category c / 51-75% glandular tissue). Current study was also evaluated with a Computer Aided Detection (CAD) system. No significant masses, calcifications, or other findings are seen in either breast. There has been no significant interval change. IMPRESSION: NEGATIVE There is no mammographic evidence of malignancy. A 1 year screening mammogram is recommended. Based on the Tyrer Cuzick model (a risk assessment model) the patient's lifetime risk is 10.7% and her 10 year risk is 2.8%. According to the ACR, ACS, and NCCN guidelines, an annual breast MRI exam along with mammogram is recommended if the patient's lifetime risk is 20% or greater. This exam was interpreted at Station ID: [id number]. NOTE: For mammograms, a report in lay terms will be sent to the patient. Approximately 15% of breast malignancies will not be visualized mammographically. In the management of a palpable breast mass, a negative mammogram must not discourage biopsy of a clinically suspicious lesion. Continued Report - Page 2 of 2 Patient Name: HECTOR HACKETT date: 1970 Sex: F Attending Physician: Linda Indications: Date: 06/24/2023 15:49 At the request of: ANGLE DIETRICH Procedure: MM screening mammo BI Electronically Signed By: Sunday rodriguez/sol:06/24/2023 15:49:58 letter sent: Normal Exam ACR BI-RADS Category 1: Negative 3341F
== END ==
LOC: MAMMO 14:59
PROVIDERS: Family Provider Nurse Practitioner Family; PCP Family Medicine; Referring Provider Family Medicine; Visit Provider Family Medicine
DX: Z12.31 Encounter for screening mammogram for malignant neoplasm of breast (principal); R92.333 Mammographic heterogeneous density, bilateral breasts
CPT/HCPCS: 77063; 77067

== ENCOUNTER → 2023-11-02 14:16 | Outpatient (CLI) | payer OTHER, SELFPAY ==
[2021-07-31 00:05] VITALS: BMI 24.0
--- NOTE | 2023-11-02 14:17 | DI.US.S_ITS ---
PROCEDURE: US PELVIC COMPLETE INDICATIONS: 6 month follow up ovarian cysts TECHNIQUE: Real-time scanning was performed of the pelvic organs, with image documentation. Additional endovaginal scanning was necessary due to incomplete visualization of the adnexal and endometrial structures by transabdominal scanning. COMPARISON: [facility], US, US PELVIC COMPLETE, 04/25/2023, 10:32. FINDINGS: Uterus: Uterus is retroverted and normal in size at 8.4 x 4.4 x 6.3 cm. The myometrium is homogeneous. The endometrium measures 6 mm combined thickness. IUD is visualized in the endometrial cavity. Ovaries: The right ovary measures 3.7 x 3.2 x 2.1 cm, with a calculated ovarian volume of 13.2 cc. There is a 2.6 cm simple cyst. This is new. The left ovary measures 3.1 x 2.3 x 2.0 cm, with a calculated ovarian volume of 7.5 cc. There is a new 1.9 x 2.2 x 1.6 cm complex cyst versus mass with peripheral vascularity. No significant change in previously seen simple cyst measuring 2.8 x 1.6 x 1.9 cm. The ovaries have a normal sonographic appearance. Less than 12 follicles can be seen in each ovary. No adnexal masses are seen. Other: No pathologic free abdominal or pelvic fluid. IMPRESSION: An intrauterine device is in place and appears to be appropriately positioned within the endometrial cavity. New 2.2 cm complex cyst versus mass in the left ovary. Recommend follow-up pelvic ultrasound in 6-12 weeks to document stability versus resolution. We strive to produce accurate, complete, and clear reports of imaging services. To assist us in improving patient care, this report was composed using standard report templates and voice recognition software. Therefore, it may contain abnormal punctuation, insertions and/or omissions. Occasional wrong-word or sound-alike substitutions may occur. Though we review the report and make efforts to correct it, we do recommend that the report be read carefully in proper context to recognize any text inaccuracies. Dictated by: Sunday Hartman M.D. on 11/02/2023 at 20:48 Approved by: Sunday Hartman M.D. on 11/02/2023 at 21:10
== END ==
PROVIDERS: Family Provider Nurse Practitioner Family; PCP Family Medicine; Referring Provider Obstetrics & Gynecology; Visit Provider Obstetrics & Gynecology
DX: N83.291 Other ovarian cyst, right side (principal); N83.292 Other ovarian cyst, left side; Z97.5 Presence of (intrauterine) contraceptive device
CPT/HCPCS: 76830; 76856

== ENCOUNTER → 2023-11-04 06:54 | Outpatient (CLI) | payer OTHER, SELFPAY ==
[2021-07-31 00:05] VITALS: BMI 24.0
[2023-11-04 07:35] LABS: Add Manual Diff / Slide Review NO; Basophils Absolute Auto 0 /uL (0-100); Basophils Percent Auto 0.7 % (0-2); Eosinophils Absolute Auto 200 /uL (0-450); Eosinophils Percent Auto 5.7 % (2-4); Hematocrit 41.4 % (36-46); Lymphocytes Absolute Auto 1200 /uL (1100-4500); Lymphocytes Percent Auto 30.8 % (25-40); Mean Corpuscular HGB Conc 33.9 % (30-36); Mean Corpuscular Hemoglobin 30.9 PG (26-34); Mean Corpuscular Volume 91.4 fL (80-100); Monocytes Absolute Auto 300 /uL (0-900); Monocytes Percent Auto 7.8 % (3-14); Neutrophils Absolute Auto 2100 /uL (1500-7000); Platelet Count 242 X10^3/uL (150-400); Red Blood Cell Count 4.53 X10^6/uL (4.0-5.2); Red Cell Distribution Width 13.7 % (11.6-14.8); White Blood Cell Count 3.9 X10^3/uL (4.5-11.0)
[2023-11-04 07:51] LABS: Hemoglobin A1C% w Est Avg Glu 5.2 % (4.0-6.0)
[2023-11-04 08:11] LABS: Alanine Aminotransferase 17 IU/L (<35); Albumin 4.3 g/dL (3.5-5.0); Albumin Globulin Ratio 1.4 (1.0-2.8); Alkaline Phosphatase 53 U/L (38-126); Aspartate Aminotransferase 23 IU/L (14-36); BUN Creatinine Ratio 22.2 (6-22); Bilirubin Total 0.6 mg/dL (0.2-1.3); Blood Urea Nitrogen 16 mg/dL (7-17); Calcium 8.8 mg/dL (8.4-10.2); Carbon Dioxide 25 mmol/L (22-32); Chloride 108 mmol/L (98-107); Cholesterol 250 mg/dL (140-199); Estimated Glomerular Filt Rate > 60 mL/min (>60); Globulin 3.1 g/dL (1.7-4.1); Glucose 85 mg/dL (70-100); HDL Cholesterol 61 mg/dL (40-60); HEMOLYSIS < 15 (0-50); LDL Cholesterol Calculated 173 mg/dL (<100); Potassium 4.3 mmol/L (3.4-5.1); Sodium 139 mmol/L (137-145); Total Protein 7.4 g/dL (6.3-8.2); Triglycerides 80 mg/dL (35-150)
== END ==
PROVIDERS: Family Provider Nurse Practitioner Family; PCP Family Medicine; Referring Provider Family Medicine; Visit Provider Family Medicine
DX: Z00.00 Encounter for general adult medical examination without abnormal findings (principal); Z13.6 Encounter for screening for cardiovascular disorders; N84.0 Polyp of corpus uteri; K92.2 Gastrointestinal hemorrhage, unspecified
CPT/HCPCS: 36415; 80053; 80061; 83036; 85025

== ENCOUNTER → 2023-11-21 08:46 | Outpatient (CLI) | payer OTHER, SELFPAY ==
[2021-07-31 00:05] VITALS: BMI 24.0
[2023-11-21 14:55] LABS: Cancer Antigen 125 < 5.5 U/mL (0-35)
== END ==
LOC: LAB 08:47
PROVIDERS: Family Provider Nurse Practitioner Family; PCP Family Medicine; Referring Provider Obstetrics & Gynecology; Visit Provider Obstetrics & Gynecology
DX: N83.202 Unspecified ovarian cyst, left side (principal)
CPT/HCPCS: 36415; 86304

== ENCOUNTER → 2024-03-02 12:20 | Outpatient (CLI) | payer OTHER, SELFPAY ==
[2021-07-31 00:05] VITALS: BMI 24.0
--- NOTE | 2024-03-02 12:21 | DI.RAD.S_ITS ---
PROCEDURE: XR FOREARM LT 2V INDICATIONS: wrist injury TECHNIQUE: 2 views of the forearm were acquired. COMPARISON: None. FINDINGS: Bones: Transverse fracture of the distal radius. No definite intra-articular extension. No significant angulation or displacement of fracture fragments. No other fractures identified. No suspicious bony lesions. Soft tissues: No suspicious soft tissue calcifications or masses. IMPRESSION: Nondisplaced transverse fracture of the distal radius. Dictated by: Joe Vaughn M.D. on 03/02/2024 at 15:41 Approved by: Joe Vaughn M.D. on 03/02/2024 at 15:43
[2024-03-02 13:18] LABS: Add Manual Diff / Slide Review NO; Basophils Absolute Auto 0 /uL (0-100); Basophils Percent Auto 0.4 % (0-2); Eosinophils Absolute Auto 200 /uL (0-450); Eosinophils Percent Auto 4.3 % (2-4); Hematocrit 39.7 % (36-46); Hemoglobin 13.3 g/dL (12.0-16.0); Lymphocytes Absolute Auto 1200 /uL (1100-4500); Lymphocytes Percent Auto 27.6 % (25-40); Mean Corpuscular HGB Conc 33.4 % (30-36); Mean Corpuscular Hemoglobin 31.2 PG (26-34); Mean Corpuscular Volume 93.4 fL (80-100); Monocytes Absolute Auto 300 /uL (0-900); Monocytes Percent Auto 7.2 % (3-14); Neutrophils Absolute Auto 2600 /uL (1500-7000); Neutrophils Percent Auto 60.5 % (50-75); Platelet Count 225 X10^3/uL (150-400); Red Blood Cell Count 4.25 X10^6/uL (4.0-5.2); Red Cell Distribution Width 13.5 % (11.6-14.8); White Blood Cell Count 4.3 X10^3/uL (4.5-11.0)
== END ==
PROVIDERS: Family Provider Nurse Practitioner Family; PCP Family Medicine; Referring Provider Family Medicine; Visit Provider Family Medicine
DX: S52.592A Other fractures of lower end of left radius, initial encounter for closed fracture (principal); D72.819 Decreased white blood cell count, unspecified; X58.XXXA Exposure to other specified factors, initial encounter
CPT/HCPCS: 36415; 73090; 85025

== ENCOUNTER → 2024-10-12 08:35 | Outpatient (CLI) | payer OTHER, SELFPAY ==
[2021-07-31 00:05] VITALS: BMI 24.0
--- NOTE | 2024-10-12 08:35 | DI.MG.S_ITS ---
MM screening mammo BI: 10/12/2024. BI-RADS: 1 CLINICAL: 54-year old female for bilateral screening mammogram. Tyrer-Cuzick lifetime risk of 8.9%. No personal or first-degree family history of breast cancer. PRIOR EXAMS 06/24/2023, 05/25/2021. MAMMOGRAPHY TECHNIQUE: 2D and 3D (tomosynthesis) digital mammographic views obtained, with additional images as needed for full coverage. Current study was also evaluated with a Computer Aided Detection (CAD) system. DENSITY C. The breasts are heterogeneously dense, which may obscure small masses. MAMMOGRAPHY FINDINGS Bilateral: No suspicious mass, asymmetry, microcalcification, or other abnormality seen. IMPRESSION: * No evidence of malignancy. RECOMMENDATIONS Bilateral * Annual screening mammography. OVERALL ASSESSMENT CATEGORY BI-RADS-1: Negative. The [employer] recommends annual screening mammography beginning at age 40 for women with average risk of breast cancer. ELECTRONICALLY SIGNED: Sunday Hartman M.D. on 10/12/2024 at 01:17:15 PM PT Interpreting Station ID: [id number]
== END ==
LOC: MAMMO 08:35
PROVIDERS: PCP Family Medicine; Referring Provider Family Medicine; Visit Provider Family Medicine
DX: Z12.31 Encounter for screening mammogram for malignant neoplasm of breast (principal); R92.333 Mammographic heterogeneous density, bilateral breasts
CPT/HCPCS: 77063; 77067

== ENCOUNTER → 2024-11-15 08:20 | Outpatient (CLI) | payer OTHER, SELFPAY ==
[2021-07-31 00:05] VITALS: BMI 24.0
[2024-11-15 10:12] LABS: Alanine Aminotransferase 23 IU/L (<35); Albumin 4.2 g/dL (3.5-5.0); Albumin Globulin Ratio 1.4 (1.0-2.8); Alkaline Phosphatase 57 U/L (38-126); Blood Urea Nitrogen 18 mg/dL (7-17); Calcium 8.9 mg/dL (8.4-10.2); Carbon Dioxide 28 mmol/L (22-32); Chloride 106 mmol/L (98-107); Cholesterol 235 mg/dL (140-199); Estimated Glomerular Filt Rate > 60 mL/min (>60); Globulin 2.9 g/dL (1.7-4.1); Glucose 89 mg/dL (70-99); HDL Cholesterol 57 mg/dL (40-60); HEMOLYSIS < 15 (0-50); Potassium 4.4 mmol/L (3.4-5.1); Sodium 141 mmol/L (137-145); Total Protein 7.1 g/dL (6.3-8.2); Triglycerides 76 mg/dL (35-150)
[2024-11-15 10:17] LABS: Add Manual Diff / Slide Review NO; Hematocrit 39.6 % (36-46); Hemoglobin 13.5 g/dL (12.0-16.0); Lymphocytes Absolute Auto 1100 /uL (1100-4500); Mean Corpuscular HGB Conc 34.2 % (30-36); Mean Corpuscular Hemoglobin 30.6 PG (26-34); Mean Corpuscular Volume 89.5 fL (80-100); Platelet Count 224 X10^3/uL (150-400)
[2024-11-15 10:39] LABS: Hemoglobin A1C% w Est Avg Glu 5.0 % (4.0-6.0)
[2024-11-18 09:07] LABS: Insulin Level Total 2.7 uIU/mL (2.6-24.9)
== END ==
PROVIDERS: PCP Family Medicine; Referring Provider Family Medicine; Visit Provider Family Medicine
DX: L98.9 Disorder of the skin and subcutaneous tissue, unspecified (principal); D72.819 Decreased white blood cell count, unspecified; Z83.3 Family history of diabetes mellitus
CPT/HCPCS: 36415; 80053; 80061; 83036; 83525; 85025